=== PATIENT | female | born 1930 | race Caucasian/White ===

== ENCOUNTER 2017-07-23 12:08 | Inpatient (IN) ==
--- NOTE | 2017-07-23 12:21 | Emergency Department Report ---
Fall HPI - General Stated Complaint: syncope/fall <Gabrielle Morris Earl - 07/23/17 12:21> Time Seen by Provider: 07/23/17 12:21 <Gabrielle Morris - 07/23/17 12:21> Source: patient <Gabrielle Morris - 07/23/17 12:21> Mode of arrival: EMS <Gabrielle Morris - 07/23/17 12:52> Limitations: no limitations <Gabrielle Morris - 07/23/17 13:11> - History of Present Illness HPI Narrative: 87-year-old female brought to ER by EMS after patient had fall while at home today. Patient says she was going to get something to drink into the kitchen and she woke up on the floor in the dinning room. Does not remember what happened. Patient was unable to get up by herself. Thinks she was on the floor from 8:30 this morning until 11:30 until family arrived to help her up. Patient reports left lateral hip pain after fall. Given 4mg of zofran by EMS for reported nausea for nausea [employer]. Unsure if she struck her head. Admits nonproductive cough for past 3-4 days Denies fever, chills, SOA, CP, vomiting, abdominal pain, dysuria, neck pain, dizziness, ataxia. <Gabrielle Morris - 07/23/17 16:02> - Related Data Home Medications Medication Instructions Recorded Confirmed Latanoprost 1 drop BOTH EYES HS #0 01/16/16 07/23/17 Multivitamin [One Daily 1 each PO DAILY 02/05/17 07/23/17 Multivitamin] [place]-3 Fatty Acids/Fish Oil [Fish 2 cap PO DAILY 02/05/17 07/23/17 Oil 1,000 mg Softgel] Aspirin [Ecotrin] 81 mg PO DAILY 07/23/17 07/23/17 Timolol 0.25% Eye Drops [Timoptic 1 drops EACH EYE DAILY 07/23/17 07/23/17 0.25% Eye Drops] <Gabrielle Morris Earl - 07/23/17 12:21> Allergies Allergy/AdvReac Type Severity Reaction Status Date / Time furosemide Allergy Intermediate RASH Verified 07/23/17 12:40 Cephalosporins Allergy Mild RASH Verified 07/23/17 12:40 levofloxacin Allergy Mild RASH Verified 07/23/17 12:40 Sulfa (Sulfonamide Allergy Mild RASH Verified 07/23/17 12:40 Antibiotics) tetracycline Allergy Mild RASH Verified 07/23/17 12:40 <MorrisGabrielle A 07/23/17 12:21> Review of Systems All systems: reviewed and negative except as stated <MorrisGabrielle A 15:41> Gastrointestinal: Reports: as per HPI, nausea <ArturoGabrielle A 07/23/17 16: 02> Musculoskeletal: Reports: as per HPI, other (left hip pain) <MorrisGabrielle A 07/23/17 15:41> [facility] Patient Stated Medical History Glaucoma Yes 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 Bladder repair <Gabrielle Morris 07/23/17 15:03> Family History: Family History (Last Reviewed 03/06/17 @ 11:57 by Anant Durand MD) Father No problems noted. <ArturoGabrielle A 07/23/17 12:21> - Social History Smoking status: Never smoker <ArturoGabrielle A 07/23/17 12:21> Substance use type: does not use <ArturoGabrielle A 07/23/17 12:21> Alcohol intake frequency: does not drink <ArturoGabrielle A 07/23/17 12:21> Household members: none <ArturoGabrielle A 07/23/17 12:21> Current occupational status: retired <Gabrielle Morris 07/23/17 12:21> Physical Exam - Limitations Limitations: no limitations <ArturoGabrielle A 07/23/17 13:11> - General General appearance: alert <Gabrielle Morris 07/23/17 13:11> - Normal Exams: Head:: Normocephalic without trauma <Gabrielle Morris 07/23/17 13:11> Eyes:: Pupils are PERRLA w/ EOMI, No scleral icterus <Gabrielle Morris 07/23 13:11> ENMT:: No facial trauma, nasal exudates, pharyngeal erythema <Gabrielle Morris 07/23/17 13:11> Neck:: Full range of motion <Gabrielle Morris 07/23/17 13:11> Chest/Respirations:: Clear all baker, with good airflow, and symmetry bilaterally <Gabrielle Morris 07/23/17 13:11> Cardiovascular:: Regular rate and rhythm <Gabrielle Morris 07/23/17 13:11> Abdomen:: Bowel sounds positive, soft, non-tender, non-distended <Gabrielle Morris 07/23/17 13:11> Neurological:: Patient is alert, and oriented, cranial nerves, motor/sensory/ cerebellar, exams w/o gross deficits, to observation <Gabrielle Morris 07/23 13:11> Psychiatric:: Patient exhibits, appropriate attention, emotion and affect < Gabrielle Morris 07/23/17 13:11> - Neck Neck exam: Present: trachea midline <Gabrielle Morris 07/23/17 13:11> - Expanded Lower Extremity Exam left Hip/Pelvis exam: Present: full ROM, tenderness (TTP lateral proximal hip), pelvis stable. Absent: swelling, abrasion, ecchymosis, deformity, crepitus, dislocation, erythema, external rotation, internal rotation, shortening < Gabrielle Morris 07/23/17 16:02> Upper leg exam: Absent: swelling, ecchymosis, deformity, crepitus <Gabrielle Morris 07/23/17 13:11> Knee exam: Present: full ROM, knee extension intact. Absent: tenderness, swelling, ecchymosis, deformity, crepitus, anterior drawer sign, posterior draw sign, pain with valgus, pain with varus <Gabrielle Morris 07/23/17 13:11> Ankle exam: Present: full ROM. Absent: tenderness, swelling, ecchymosis, deformity <Gabrielle Morris 07/23/17 13:11> Foot/toe exam: Present: full ROM. Absent: tenderness, swelling, ecchymosis, deformity <Gabrielle Morris Earl - 07/23/17 13:11> Neurovascular/Tendon exam: Absent: pulse deficit, extremity cold to touch < MorrisGabrielle Elliott - 07/23/17 13:11> - Back Exam Back exam: Absent: tenderness, muscle spasm, vertebral tenderness <Gabrielle Morris - 07/23/17 16:02> - Skin Skin exam: Present: warm, dry <Gabrielle Morris - 07/23/17 16:02> Course - Consultations Consultation #1: I discussed patient's HPI, PMH, labs, CT head/pelvis, x-rays, EKG, VS, treatment in the ED with Dr. Stinson. Dr. Stinson willl admit patient observation status. <Gabrielle Morris - 07/23/17 16:02> Vital Signs Temperature 98.9 F 07/23/17 12:11 Pulse Rate 84 07/23/17 12:11 Respiratory Rate 18 07/23/17 12:11 Blood Pressure 145/83 H 07/23/17 12:11 Pulse Oximetry 94 07/23/17 12:11 Temperature 98.9 F 07/23/17 12:11 Pulse Rate 80 07/23/17 15:30 Respiratory Rate 17 07/23/17 15:30 Blood Pressure 115/54 07/23/17 15:30 Pulse Oximetry 97 07/23/17 15:30 <Gabrielle Morris - 07/23/17 12:21> Fall - MDM Narrative Medical decision making narrative: CBC unremarkable sodium 120 Normal troponin and proBNP Urine is positive for nitrates, 3-5 WBCs and 4+ bacteria (most likely contaminated specimen) patient just finished nitrofurantoin for diagnosed UTI Patient has a 20 mmHg drop in systolic pressure from lying to sitting. Patient was given 500 mg, saline. Questionable syncopal episode Patient unable to bear weight with support of staff/walker on left leg. Patient lives alone, unable to bear weight with assistance. Hospitalist notified and patient is admitted observation status. <Gabrielle Morris - 07/23/17 17:11> - Differential Diagnosis Likely: syncope (, fall, orthostatic hypotension, TIA, CVA, ), compression fracture (, other fracture) <Gabrielle Morris - 07/23/17 14:38> - Medical Records Attestation: I reviewed the patient's medical records. <Gabrielle Morris - 12/02 14:38> - Lab Data Attestation: I reviewed the patient's lab results. <Gabrielle Morris - 14:38> Result diagrams: 07/23/17 12:58 07/23/17 12:58 <Gabrielle Morris - 07/23/17 12:21> Lab Results 07/23/17 07/23/17 07/23/17 Range/Units 12:58 12:58 12:58 WBC 8.6 (4.5-11.0) T/MM3 RBC 4.33 (4.00-5.20) M/MM3 Hgb 12.1 (12-16) GM/DL Hct 36.1 (36-46) % MCV 83.4 (80-100) UM3 MCH 27.9 (26-34) UUG MCHC 33.5 (31-37) GM/DL RDW Std Deviation 39.6 (36.9-50.2) FL Plt Count 247 (130-400) T/MM3 MPV 8.9 L (9.4-12.4) UM3 Immature Gran % (Auto) 0.3 (0.0-0.5) % Neut % (Auto) 79.1 H (33-66) % Lymph % (Auto) 12.1 L (23-45) % [place] % (Auto) 8.3 (0-9.0) % Eos % (Auto) 0.1 (0-4) % Baso % (Auto) 0.1 (0-2) % Neut # (Auto) 6.8 (1.8-7.7) T/MM3 Lymph # (Auto) 1.0 (1-4.8) T/MM3 [place] # (Auto) 0.7 (0-0.8) T/MM3 Eos # (Auto) 0.0 (0-0.5) T/MM3 Baso # (Auto) 0.0 (0-0.2) T/MM3 Abs Immat Gran (auto) 0.03 (0.00-0.03) T/MM3 Turbidity < 20 (0-20) Sodium 128 L (134-144) MEQ/L Potassium 3.9 (3.6-5) MEQ/L Chloride 89 L (98-107) MEQ/L Carbon Dioxide 31 H (22-30) MEQ/L Anion Gap 8 (5-15) MEQ/L BUN 12.0 (7-17) MG/DL Creatinine 0.5 L (0.7-1.2) mg/dL GFR Calculation 117 BUN/Creatinine Ratio 24 (6-26) RATIO Glucose 114 H (65-110) MG/DL Calculated Osmolality 248 L (261-280) MOSM/KG Calcium 8.7 (8.4-10.2) MG/DL Total Bilirubin 0.40 (0.20-1.30) MG/DL Icterus Index < 2 (0-7) AST 47 H (14-36) U/L ALT 34 (1-35) U/L Alkaline Phosphatase 97 (38-126) U/L Troponin I < 0.012 (0-0.12) ng/ml NT-Pro-B Natriuret Pep 171 (0-175) pg/mL Total Protein 7.0 (6.3-8.2) g/dL Albumin 4.1 (3.5-5.0) g/dL Globulin 2.9 (2.4-3.6) G/DL Albumin/Globulin Ratio 1.4 (1.1-2.2) RATIO Specimen Hemolysis < 15 (0-25) Ur Collection Type Urine, void-cc/notcc Urine Color Yellow (YELLOW) Urine Clarity Sl cloudy Urine pH >=9.0 A (5.0-8.0) Ur Specific [place] 1.010 L (1.015-1.025) Urine Protein Negative (NEGATIVE) Urine Glucose (UA) Negative (NEGATIVE) Urine Ketones Negative (NEGATIVE) Urine Occult Blood Negative (NEGATIVE) Urine Nitrate Positive A (NEGATIVE) Urine Bilirubin Negative (NEGATIVE) Urine Urobilinogen 0.2 (NORMAL) EU/DL Ur Leukocyte Esterase Negative (NEGATIVE) Urine RBC 0-1 (0-3) /HPF Urine WBC 3-5 (0-5) /HPF Triple Phos Crystals Few Urine Bacteria 4+ H (NEGATIVE) Ur Culture Indicated? Cult reflexed &setup <Dennis Sanders - 07/23/17 12:41> Lab Results 07/23/17 07/23/17 07/23/17 Range/Units 12:58 12:58 12:58 WBC 8.6 (4.5-11.0) T/MM3 RBC 4.33 (4.00-5.20) M/MM3 Hgb 12.1 (12-16) GM/DL Hct 36.1 (36-46) % MCV 83.4 (80-100) UM3 MCH 27.9 (26-34) UUG MCHC 33.5 (31-37) GM/DL RDW Std Deviation 39.6 (36.9-50.2) FL Plt Count 247 (130-400) T/MM3 MPV 8.9 L (9.4-12.4) UM3 Immature Gran % (Auto) 0.3 (0.0-0.5) % Neut % (Auto) 79.1 H (33-66) % Lymph % (Auto) 12.1 L (23-45) % [place] % (Auto) 8.3 (0-9.0) % Eos % (Auto) 0.1 (0-4) % Baso % (Auto) 0.1 (0-2) % Neut # (Auto) 6.8 (1.8-7.7) T/MM3 Lymph # (Auto) 1.0 (1-4.8) T/MM3 [place] # (Auto) 0.7 (0-0.8) T/MM3 Eos # (Auto) 0.0 (0-0.5) T/MM3 Baso # (Auto) 0.0 (0-0.2) T/MM3 Abs Immat Gran (auto) 0.03 (0.00-0.03) T/MM3 Turbidity < 20 (0-20) Sodium 128 L (134-144) MEQ/L Potassium 3.9 (3.6-5) MEQ/L Chloride 89 L (98-107) MEQ/L Carbon Dioxide 31 H (22-30) MEQ/L Anion Gap 8 (5-15) MEQ/L BUN 12.0 (7-17) MG/DL Creatinine 0.5 L (0.7-1.2) mg/dL GFR Calculation 117 BUN/Creatinine Ratio 24 (6-26) RATIO Glucose 114 H (65-110) MG/DL Calculated Osmolality 248 L (261-280) MOSM/KG Calcium 8.7 (8.4-10.2) MG/DL Total Bilirubin 0.40 (0.20-1.30) MG/DL Icterus Index < 2 (0-7) AST 47 H (14-36) U/L ALT 34 (1-35) U/L Alkaline Phosphatase 97 (38-126) U/L Troponin I < 0.012 (0-0.12) ng/ml NT-Pro-B Natriuret Pep 171 (0-175) pg/mL Total Protein 7.0 (6.3-8.2) g/dL Albumin 4.1 (3.5-5.0) g/dL Globulin 2.9 (2.4-3.6) G/DL Albumin/Globulin Ratio 1.4 (1.1-2.2) RATIO Specimen Hemolysis < 15 (0-25) Ur Collection Type Urine, void-cc/notcc Urine Color Yellow (YELLOW) Urine Clarity Sl cloudy Urine pH >=9.0 A (5.0-8.0) Ur Specific [place] 1.010 L (1.015-1.025) Urine Protein Negative (NEGATIVE) Urine Glucose (UA) Negative (NEGATIVE) Urine Ketones Negative (NEGATIVE) Urine Occult Blood Negative (NEGATIVE) Urine Nitrate Positive A (NEGATIVE) Urine Bilirubin Negative (NEGATIVE) Urine Urobilinogen 0.2 (NORMAL) EU/DL Ur Leukocyte Esterase Negative (NEGATIVE) Urine RBC 0-1 (0-3) /HPF Urine WBC 3-5 (0-5) /HPF Triple Phos Crystals Few Urine Bacteria 4+ H (NEGATIVE) Ur Culture Indicated? Cult reflexed &setup <Gabrielle Morris 07/23/17 12:21> - Radiology Data Attestation: I reviewed the patient's radiology results. <Gabrielle Morris 07/23/17 14:11> CT head: no acute findings, chronic changes (V-RAD) Pelvis/left hip: left ramus fracture (Dr. Sanders) CT pelvis: left superior and inferior ramus fractures (V-RAD) CXR: no acute cardiopulmonary findings, similar to previous (Dr. Sanders) <Gabrielle Morris 07/23/17 16:02> - EKG Data EKG #1 EKG attestation: Yes: I reviewed and interpreted this EKG. <Gabrielle Morris 07/23/17 14:11> EKG results narrative: Sinus rhythm. 82 bpm. No STEMI. <Dennis Sanders - 07/23/17 12:41> Disposition Clinical Impression: Pubic ramus fracture Qualifiers: Encounter type: initial encounter Fracture type: closed Laterality: left Qualified Code(s): S32.592A - Other specified fracture of left pubis, initial encounter for closed fracture <Gabrielle Morris - 07/23/17 15:41> Disposition: 02 To [facility] <Gabrielle Morris - 07/23/17 17:11> Condition: Stable <Gabrielle Morris 07/23/17 17:11> Instructions: <Gabrielle Morris 07/23/17 12:21> Prescriptions: No Action Latanoprost 1 drop BOTH EYES HS #0 [place]-3 Fatty Acids/Fish Oil [Fish Oil 1,000 mg Softgel] 2 cap PO DAILY Aspirin [Ecotrin] 81 mg PO DAILY Multivitamin [One Daily Multivitamin] 1 each PO DAILY Timolol 0.25% Eye Drops [Timoptic 0.25% Eye Drops] 1 drops EACH EYE DAILY < Gabrielle Morris - 07/23/17 12:21> Referrals: Matt Ahuja MD [Primary Care Provider] - <Gabrielle Morris - 07/23/17 12:21> Forms: <Gabrielle Morris - 07/23/17 12:21> - Seen By: midlevel <Gabrielle Morris - 07/23/17 16:02>
[2017-07-23] MEDS ORDERED: FentaNYL 100 MCG/2 ML INJECTION IVP ONE (12:31)
[2017-07-23] MEDS: SALINE FLUSH 10ml SYRINGE IVF PRN ×2 (12:55→15:00)
[2017-07-23] MEDS ORDERED: FentaNYL 250 MCG/5 ML INJECTION IVP ONE ×2 (14:00)
[2017-07-23] MEDS ORDERED: HYDROCODONE/APAP 5mg/325mg TABLET PO ONE (14:16)
[2017-07-23 16:04] VITALS: BMI 27.6
--- NOTE | 2017-07-23 17:01 | History & Physical Report ---
History of Present Illness Date: 07/23/17 (PCP: Matt Ahuja) Chief complaint: Fall, pubic rami fx. HPI: Kathie is a pleasant 87 yo WF who fell this morning after a syncopal event. She is unclear on what happened, but woke up on the floor after an unknown down time. She was unable to stand due to left hip pain, and was brought into the ER for further evaluation and treatment. She has been found to have inferior and superior left pubic rami fracture and bladder hematoma. She has been admitted for further evaluation and treatment. Upon review of her record, pt. is noted to have several falls per ER records. She fell in February and suffered a finger laceration and fracture and was seen by Dr. Durand. She does admit that she suffers frequent falls. She reports that she stands up and "just falls backward". She does not have a documented neurological disorder, but her daughter does report pt. has a constant "head geneva", which is visible during our visit today. She has been recommended to have outpatient PT in the past due to gait instability. 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 She reports that she was recently treated for UTI with Macrobid due to labs obtained at a wellness exam. She denies any urinary sx. She reports she was afraid to take antibiotic therapy due to past history of C.Diff requiring ICU stay, several weeks in the hospital, and fecal transplant about 10 years ago. CXR has been reviewed today- concern for fibrotic changes per my reading- I d/w pt- she denies underlying lung disease. Daughter states pt has been ill with a persistent cough for the last week or so. patient denies fever. Cough is nonproductive. No SOA. Remote smoking hx, none currently. D/w pt and family at length. Questions answered. Review of Systems All systems PM: 10-point ROS was reviewed, no additional remarkable complaints except - Constitutional Constitutional: Absent: fever(s), headache(s) - EENMT Eyes: Absent: change in vision, loss of vision Ears: Present: other (Hearing loss left ear. ) Balance: Absent: vertigo Mouth/Throat: Present: hoarseness (new today) - Cardiovascular Cardiovascular: Present: syncope. Absent: chest pain, palpitations, dyspnea on exertion, edema, heart murmur Rhythm: Present: regular rhythm Vascular: Absent: pedal edema - Respiratory Respiratory: Present: cough, chest congestion. Absent: dyspnea, hemoptysis, dyspnea on exertion - Gastrointestinal Gastrointestinal: Absent: abdominal pain, change in bowel habits, constipation, hematemesis - Genitourinary Genitourinary: Absent: difficulty urinating, hematuria, pelvic pain - Musculoskeletal Musculoskeletal: Present: limited range of motion - Neurological Neurological: Present: frequent falls, lack of coordination, tremor(s), weakness Past Medical History Medical History: Medical History (Last Updated 07/23/17 @ 17:06 by Monica Prado APRN) Adenomatous colon polyp Age related osteoporosis Anemia Clostridium difficile enterocolitis Diverticulosis Dyslipidemia Glaucoma Meniere's disease Squamous cell carcinoma of lower leg No active medical problems Surgical History: Hysterectomy. Bladder repair. lumbar laminectomy. colonoscopy Family History: Family History (Last Reviewed 03/06/17 @ 11:57 by Anant Durand MD) Father CAD Family History Updates: Mother- CHF. Brother- Lung CA. Sister- MVA Family History: As Above - Social History Smoking status: Former smoker Substance use type: does not use Housing: house Household members: none Current occupational status: retired Current residence: Apartment/Private Home Medications Home Medications Medication Instructions Recorded Confirmed Type Latanoprost 1 drop BOTH EYES HS #0 01/16/16 07/23/17 History Multivitamin [One Daily 1 each PO DAILY 02/05/17 07/23/17 History Multivitamin] [place]-3 Fatty Acids/Fish Oil [Fish 2 cap PO DAILY 02/05/17 07/23/17 History Oil 1,000 mg Softgel] Aspirin [Ecotrin] 81 mg PO DAILY 07/23/17 07/23/17 History Timolol 0.25% Eye Drops [Timoptic 1 drops EACH EYE DAILY 07/23/17 07/23/17 History 0.25% Eye Drops] Allergies Allergy/AdvReac Type Severity Reaction Status Date / Time furosemide Allergy Intermediate RASH Verified 07/23/17 12:40 Cephalosporins Allergy Mild RASH Verified 07/23/17 12:40 levofloxacin Allergy Mild RASH Verified 07/23/17 12:40 Sulfa (Sulfonamide Allergy Mild RASH Verified 07/23/17 12:40 Antibiotics) tetracycline Allergy Mild RASH Verified 07/23/17 12:40 Exam Vital Signs: Temperature 98.9 F 07/23/17 12:11 Pulse Rate 80 07/23/17 15:30 Respiratory Rate 17 07/23/17 15:30 Blood Pressure 115/54 07/23/17 15:30 Pulse Oximetry 97 07/23/17 15:30 Telemetry Rhythm: Sinus Rhythm Telemetry Ectopy: Bundle Branch Block Height/Weight/BMI: Height 1.63 m Weight 73.2 kg Body Mass Index 27.6 - Constitutional Present: no acute distress, well nourished, well developed, average body habitus , cooperative - Routine HEENT Exam Head: Present: normocephalic, atraumatic (no laceration or bruises on head noted. ). Absent: laceration, hematoma, scalp tenderness Eye: Present: EOMI, PERRL. Absent: periorbital ecchymosis, periorbital swelling ENT: Present: mucous membranes dry - Routine Neck Exam Present: supple, full ROM. Absent: JVD, tenderness - Routine Respiratory Exam Present: decreased breath sounds, distant breath sounds. Absent: dyspnea, respiratory distress, crackles - Routine Cardiovascular Exam Present: RRR, S1, S2, no murmur - Routine Abdominal Exam Present: soft, normoactive bowel sounds, non distended, non tender Comments: No tenderness. No suprapubic tenderness on exam. No palpable hernia (pt states past hx of hernia-no sx) - Routine Extremities Exam Present: tenderness. Absent: edema, no edema, calf tenderness, extremity cold to touch - Routine Back/Spine/Pelvis Exam Pelvis: Present: sacral tenderness - Routine Skin Exam Present: intact, dry, warm - Routine Neurological Exam Present: alert, oriented X3, moving all extremities, tremors (resting head tremor noted. ) - Routine Psychiatric Exam Present: normal affect, normal thought process, cooperative Results - Labs CBC & Chem 7: 07/23/17 12:58 07/23/17 12:58 - Impressions CT head no acute. CT pelvis- superior and inferior pubic rami fx. Bladder hemorrhage Assessment and Plan (1) Pubic ramus fracture Current visit: Yes Status: Acute Assessment and Plan: 87 yo WF with Impression: 1. Left inferior and superior pubic rami fx. 2. Bladder hemorrhage, traumatic 3. Syncope with loss of consciousness, unknown down time 4. Orthostatic hypotension 5. Hyponatremia 6. Frequent falls. 7. Resting head tremor 8. Hx of complicated C.Diff 9. Glucoma 10. Recent viral URI with cough. 11. Recent UTI s/p macrobid. Plan: Due to co-morbid condition and severity of illness- change to inpatient admission *Ortho: Consult Dr. Durand in AM for recommendations. Control pain. I suspect she will need IRU or SNU stay for gait retraining. She is at high risk for injury due to frequent falls. D/W pt and family. *Syncope/Orthostasis/Hyponatremia Gentle IVF, but monitor. Monitor serial orthostatics. May need Midodrine if this persists due to hx of frequent falls. Monitor labs closely. *resting head tremor, gait instability consider future neuro eval *recent viral infection Add nebs. She is currently requiring O2. Monitor CXR. *Recent UTI/bladder hematoma- monitor for symptoms. Continue current. *resume home meds as appropriate. She has multiple medical issues, expect her length of stay to exceed two midnights. D/W pt and family code status- Full Code for now. She does have DPOA paperwork family will bring up. DVT Prophylaxis: SCD's Resuscitation Status: Full Code - Time spent with patient Time with patient PN: 35 minutes Coordination of Care: >50% of visit spent providing counseling/coordination of care - Physician Narrative Physician: Milton Stinson MD Narrative: Date: 07/23/17 Time: 1849 I have independently evaluated and examined this patient. I reviewed the chart, the patient's history, and the [employer]/PA's documented findings as above. We discussed and formulated the assessment and plan as above with additions as below: 87 yo with recent h/o falls. She says the one today was different, but she doesn 't remember what happened. She had gotten up from bed and was walking past the end of the bed. The next thing she knew she was on the ground. She could not get up d/t pain. She presented to the ER and was found to have inferior and superior left pubic rami fx. She was not able to bear weight and was admitted for pain control and therapy. In the ER she had a 20 mmHg drop in systolic pressure from lying to sitting. She was given 500 mg of NS. She c/o a dry cough of late. Some coughing spells lead to nausea. A granddaughter was present and reports patient has trouble eating and drinking her coffee. Patient says she does not cook for herself like she should when asked about her appetite. She avoided the question but at one point said sometimes she will just eat popcorn. She denies weight loss. Gen-NAD. HEENT- nc/at, perrl, eomi. Neck- supple Lungs-dim bs. CV- rrr. no m, r,g. Abd-s/nt/nd. Ext-no c,c,e. Neuro-a&ox3. No focal defecit Admitted to medical floor. Pain control. Consult PT/OT. Consult Dr. Durand, patient known to him. Start Duonebs and continue O2. Patient will need speech eval. Continue IVF. Check orthostatics qAM. Given falls, SNU or rehab are best options. Would need home safety eval if going home. Patient is a full code, but may d/w family. Hospital Course Summary Disclaimer: The visit summary below is not to be considered part of the above Progress Note. Hospital Course: 87 yo WF with Impression: 1. Left inferior and superior pubic rami fx. 2. Bladder hemorrhage, traumatic 3. Syncope with loss of consciousness, unknown down time 4. Orthostatic hypotension 5. Hyponatremia 6. Frequent falls. 7. Resting head tremor 8. Hx of complicated C.Diff 9. Glucoma 10. Recent viral URI with cough. 11. Recent UTI s/p macrobid. Plan: Due to co-morbid condition and severity of illness- change to inpatient admission *Ortho: Consult Dr. Durand in AM for recommendations. Control pain. I suspect she will need IRU or SNU stay for gait retraining. She is at high risk for injury due to frequent falls. D/W pt and family. *Syncope/Orthostasis/Hyponatremia Gentle IVF, but monitor. Monitor serial orthostatics. May need Midodrine if this persists due to hx of frequent falls. Monitor labs closely. *resting head tremor, gait instability consider future neuro eval *recent viral infection Add nebs. She is currently requiring O2. Monitor CXR. *Recent UTI/bladder hematoma- monitor for symptoms. Continue current. *resume home meds as appropriate. She has multiple medical issues, expect her length of stay to exceed two midnights. D/W pt and family code status- Full Code for now. She does have DPOA paperwork family will bring up.
[2017-07-23] MEDS ORDERED: MORPHINE SULFATE 2mg INJ IVP PRN (17:22)
[2017-07-23] MEDS ORDERED: ONDANSETRON 4 MG/2 ML INJECTION IVP PRN (17:22)
[2017-07-23] MEDS ORDERED: ACETAMINOPHEN 500 MG TABLET PO PRN (17:25)
[2017-07-23] MEDS ORDERED: BACLOFEN 10 MG TABLET PO PRN (17:26)
[2017-07-23] MEDS: ALBUTEROL/IPRATROPIUM 2.5mg-0.5mg/3ml NEB AEROSOL SCH (19:02)
[2017-07-23] MEDS: NS 1,000 ML IV SCH (19:58)
[2017-07-23] MEDS ORDERED: BACLOFEN 10 MG TABLET PO SCH (21:00)
[2017-07-24] MEDS: NS 1,000 ML IV SCH ×3 (02:38→16:31)
[2017-07-24] MEDS: ALBUTEROL/IPRATROPIUM 2.5mg-0.5mg/3ml NEB AEROSOL SCH ×4 (06:55→21:02)
--- NOTE | 2017-07-24 07:28 | CT Scan Report ---
Indication: syncopal episode unsure if she struck her head PROCEDURE: CT head/brain wo con: Encounter: Initial Comparison: None Technique: Axial CT images through the head were performed without contrast. Iterative Reconstruction dose reducing technique was utilized. FINDINGS: Mild generalized atrophy. 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 The ventricles are of normal size, shape, and contour for the patient's age. There are scattered areas of low attenuation in the white matter which most likely represent changes from chronic microvascular ischemia. The brainstem, cerebellum, and cerebral hemispheres otherwise have a normal morphology and CT attenuation. There is no evidence of midline displacement. No hemorrhage, signs of acute territorial stroke, mass effect, mass lesions, or edema is evident. The visualized portions of the skull base, midface, and calvarium demonstrate no abnormality. The paranasal sinuses are well aerated and free of significant disease. The tympanic and mastoid cavities appear normal. IMPRESSION: No acute intracranial abnormality or hemorrhage. There is a preliminary report by [employer]. .
--- NOTE | 2017-07-24 07:52 | XRay Report ---
Indication: syncope, hx. of cough PROCEDURE: XR chest 1V: Encounter: Initial Comparison: March 02, 2012 Findings: The lungs are stable in appearance without new focal airspace consolidation. Mild senescent changes in the lungs. There is no pleural effusion or pneumothorax. The heart size and mediastinal contours are unchanged. IMPRESSION: Stable appearance of the chest without acute cardiopulmonary disease. .
--- NOTE | 2017-07-24 08:21 | Orthopedic Consult Note ---
Orthopedic Consultation [facility] - Consultation Info Consult Date: 07/24/17 Attending Physician: Milton Stinson IV, MD - History of Present Illness Kathie had a syncopal episode at home yesterday morning 07/23/17. States she was on the floor for approximately 3 hours before she was able to notify EMS. She thinks she hit her hip on recliner when she fell, unsure if hit head or shoulder. Was painful to ambulate. She only uses a walking stick at home, states she will typically loose her balance and fall backwards. Per ER records she has had multiple falls. Xrays reveal non-displaced superior and inferior pubic rami fracture. Admitted for hyponatremia, syncope, UTI. Her pain has been well controlled. She has ambulated to bedside commode only. Denies any pain of hip or with internal/external rotation of hip. Review of Systems - Constitutional Constitutional: Absent: fever(s), dizziness - Cardiovascular Cardiovascular: Absent: chest pain, edema - Respiratory Respiratory: Absent: cough, dyspnea - Musculoskeletal Musculoskeletal: Present: as per [facility] Medical History (Last Updated 07/23/17 @ 17:06 by Monica Prado APRN) Adenomatous colon polyp (Acute Medical) Age related osteoporosis (Acute Medical) Anemia (Acute Medical) Clostridium difficile enterocolitis (Acute Medical) Diverticulosis (Acute Medical) Dyslipidemia (Acute Medical) Glaucoma (Acute Medical) Meniere's disease (Acute Medical) Squamous cell carcinoma of lower leg (Acute Medical) No active medical problems (Acute Medical) Surgical History: Hysterectomy. Bladder repair. lumbar laminectomy. colonoscopy Family History: Family History (Last Reviewed 03/06/17 @ 11:57 by Anant Durand MD) Father No problems noted. Family History Updates: Mother- CHF. Brother- Lung CA. Sister- MVA - Social History Smoking status: Former smoker Substance use type: does not use Alcohol intake frequency: does not drink Housing: house Household members: none Current occupational status: retired Current residence: Apartment/Private Home Medications Home Medications Medication Instructions Recorded Confirmed Type Latanoprost 1 drop BOTH EYES HS #0 01/16/16 07/23/17 History Multivitamin [One Daily 1 each PO DAILY 02/05/17 07/23/17 History Multivitamin] [place]-3 Fatty Acids/Fish Oil [Fish 2 cap PO DAILY 02/05/17 07/23/17 History Oil 1,000 mg Softgel] Aspirin [Ecotrin] 81 mg PO DAILY 07/23/17 07/23/17 History Timolol 0.25% Eye Drops [Timoptic 1 drops EACH EYE DAILY 07/23/17 07/23/17 History 0.25% Eye Drops] Allergies Allergy/AdvReac Type Severity Reaction Status Date / Time furosemide Allergy Intermediate RASH Verified 07/23/17 12:40 Cephalosporins Allergy Mild RASH Verified 07/23/17 12:40 levofloxacin Allergy Mild RASH Verified 07/23/17 12:40 Sulfa (Sulfonamide Allergy Mild RASH Verified 07/23/17 12:40 Antibiotics) tetracycline Allergy Mild RASH Verified 07/23/17 12:40 Exam - Constitutional Vital Signs: Temperature 98.9 F 07/23/17 23:43 Pulse Rate 100 07/24/17 00:00 Respiratory Rate 22 07/24/17 06:55 Blood Pressure 155/69 H 07/23/17 23:43 Pulse Oximetry 94 07/24/17 06:55 General: cooperative, no acute distress, well developed, well groomed Nutritional Appearance: well nourished Orientation: alert - Psych Mood: normal Affect: normal Attitude: cooperative - RLE General: normal to inspection Hip Palpation: Tender: lateral (mild tenderness) Skin: no lesions, no ecchymosis Hip Range of Motion: normal ROM Neurological: no deficits, normal to light touch Vascular: dorsalis pedis pulse within normal limits - LLE General: normal to inspection Skin: no lesions, no ecchymosis Hip Range of Motion: normal ROM Neurological: no deficits, normal to light touch Vascular: dorsalis pedis pulse within normal limits - Respiratory Respiratory Exam: non-labored - Cardiac Cardiovascular exam: pedal pulses intact - Labs Result Diagrams: 07/24/17 04:06 07/24/17 04:06 Abnormal lab results 07/24/17 07/24/17 Range/Units 04:06 04:06 RBC 3.73 L (4.00-5.20) M/MM3 Hgb 10.5 L D (12-16) GM/DL Hct 31.5 L D (36-46) % MPV 9.3 L (9.4-12.4) UM3 Lymph % (Auto) 19.5 L (23-45) % [place] % (Auto) 15.7 H (0-9.0) % [place] # (Auto) 1.0 H (0-0.8) T/MM3 Sodium 129 L (134-144) MEQ/L Chloride 95 L D (98-107) MEQ/L Creatinine 0.4 L (0.7-1.2) mg/dL BUN/Creatinine Ratio 30 H (6-26) RATIO Calculated Osmolality 249 L (261-280) MOSM/KG Calcium 7.7 L D (8.4-10.2) MG/DL Albumin 3.1 L (3.5-5.0) g/dL H & H 07/24/17 Range/Units 04:06 Hgb 10.5 L D (12-16) GM/DL Hct 31.5 L D (36-46) % Impression and Recommendation (1) Pubic ramus fracture Current visit: Yes Qualifiers: Encounter type: initial encounter Fracture type: closed Laterality: left Qualified Code(s): S32.592A - Other specified fracture of left pubis, initial encounter for closed fracture Status: Acute Will have patient ambulate with therapy this morning, then will obtain pelvis xrays this afternoon with inlet and outlet views. Hospitalist medically managing. PT/OT services to improve independent function. Discharge Planning per Case Management. Hospital Course Summary Disclaimer: The visit summary below is not to be considered part of the above Progress Note. Hospital Course: 87 yo WF with Impression: 1. Left inferior and superior pubic rami fx. 2. Bladder hemorrhage, traumatic 3. Syncope with loss of consciousness, unknown down time 4. Orthostatic hypotension 5. Hyponatremia 6. Frequent falls. 7. Resting head tremor 8. Hx of complicated C.Diff 9. Glucoma 10. Recent viral URI with cough. 11. Recent UTI s/p macrobid. Plan: Due to co-morbid condition and severity of illness- change to inpatient admission *Ortho: Consult Dr. Durand in AM for recommendations. Control pain. I suspect she will need IRU or SNU stay for gait retraining. She is at high risk for injury due to frequent falls. D/W pt and family. *Syncope/Orthostasis/Hyponatremia Gentle IVF, but monitor. Monitor serial orthostatics. May need Midodrine if this persists due to hx of frequent falls. Monitor labs closely. *resting head tremor, gait instability consider future neuro eval *recent viral infection Add nebs. She is currently requiring O2. Monitor CXR. *Recent UTI/bladder hematoma- monitor for symptoms. Continue current. *resume home meds as appropriate. She has multiple medical issues, expect her length of stay to exceed two midnights. D/W pt and family code status- Full Code for now. She does have DPOA paperwork family will bring up.
--- NOTE | 2017-07-24 09:29 | CT Scan Report ---
EXAM: CT pelvis wo con HISTORY: left pelvic ramus fracture TECHNIQUE: CT of the pelvis was performed. No contrast was administered. 3-D reconstructions were then performed at a separate workstation for better anatomic detail. Dose reduction techniques were utilized to allow for the lowest possible radiation dose. COMPARISON: Pelvic x-ray dated 07/23/2017. FINDINGS: There are acute minimally displaced comminuted oblique fractures of the left superior and inferior pubic rami. The bones are otherwise intact. No dislocation is present. Moderate hypertrophic degenerative changes are present involving the sacroiliac joints and bilateral hips. Fusion hardware is present overlying the lower lumbar spine with no evidence of hardware fracture or loosening. A hematoma is present within the lower anterior pelvis measuring 5.4 x 4.0 cm. A 3.0 x 2.5 cm cystic lesion is present within the right ovary Scattered diverticula are present throughout the visualized portions of the colon. IMPRESSION: 1. Acute minimally displaced comminuted fractures of left superior and inferior pubic rami. 2. Hematoma within the anterior lower pelvis. 3. Right adnexal cystic lesion. These findings are abnormal given patient age, recommend pelvic ultrasound on a nonemergent basis for further evaluation. 4. Degenerative changes of the bilateral sacroiliac joints and hips. .
--- NOTE | 2017-07-24 09:31 | XRay Report ---
EXAM: XR pelvis w/ 2 view LT hip COMPARISON: None available. HISTORY: pain left lateral hip after fall . FINDINGS: There are acute minimally displaced comminuted fractures of the left superior and inferior pubic rami. Moderate hypertrophic degenerative changes are present involving the bilateral hips and sacroiliac joints. Fusion hardware is present in the lower lumbar spine with no evidence of hardware fracture or loosening. IMPRESSION: Acute minimally displaced comminuted fractures of left superior and inferior pubic rami. .
[2017-07-24] MEDS: --POM--LATANOPROST 0.005% EYE DROPS 2.5ml EACH EYE SCH ×2 (09:37→20:33)
[2017-07-24] MEDS: EYE EACH EYE SCH (09:39)
[2017-07-24] MEDS: TIMOLOL 0.25% EACH EYE SCH (09:39)
[2017-07-24] MEDS ORDERED: FOSFOMYCIN 3 GRAM PACKET PO ONE (13:47)
--- NOTE | 2017-07-24 14:25 | XRay Report ---
EXAM: XR pelvis 1-2V COMPARISON: CT pelvis dated 07/23/2017 and pelvic radiograph dated 07/23/2017 HISTORY: left pelvic fracture . FINDINGS: Redemonstration of comminuted acute minimally displaced fractures of left superior and inferior pubic rami. The bones are otherwise intact. No dislocation is present. Posterior fusion hardware is present in the lower lumbar spine with no evidence of hardware fracture or loosening. Stable moderate hypertrophic degenerative changes of the bilateral hips and sacroiliac joints. IMPRESSION: 1. Acute minimally displaced fractures of the left superior-inferior pubic rami. 2. Post surgical changes of the lower lumbar spine with no evidence of a complicating process. .
--- NOTE | 2017-07-24 14:52 | Progress Note ---
- Date 07/24/17 Subjective: Kathie is seen today in follow up while resting in the chair. She reports having some mild left pelvic pain with ambulation. Otherwise, she denies having shortness of breath or chest pain. Appetite is fair. She had some burning with urination this morning. No bowel movements since admission. Objective Vital signs: Temperature 98.0 F 07/24/17 11:41 Pulse Rate 97 07/24/17 09:07 Respiratory Rate 16 07/24/17 11:35 Blood Pressure 119/66 07/24/17 08:11 Pulse Oximetry 92 07/24/17 11:35 Height/Weight/BMI: Weight 73.8 kg - Constitutional Present: no acute distress, well nourished, well developed - Routine HEENT Exam Eye: Present: EOMI ENT: Present: mucous membranes moist, dentition normal - Routine Respiratory Exam Present: CTA bilaterally. Absent: wheezes - Routine Cardiovascular Exam Present: RRR, S1, S2. Absent: murmur - Routine Abdominal Exam Present: soft, normoactive bowel sounds, non distended. Absent: tenderness - Routine Extremities Exam Present: normal capillary refill - Routine Back/Spine/Pelvis Exam Back image: 1 - pain - Routine Skin Exam Present: intact, dry, warm - Routine Neurological Exam Present: alert, oriented X3, CN II-XII intact - Routine Lymphatic Exam Lymphatic: Absent: adenopathy - Routine Psychiatric Exam Present: normal affect, cooperative Results - Labs CBC & Chem 7: 07/24/17 04:06 07/24/17 04:06 Assessment and Plan (1) Pubic ramus fracture Current visit: Yes Status: Acute Assessment and Plan: Impression: 1. Left inferior and superior pubic rami fx. 2. Bladder hemorrhage, traumatic 3. Syncope with loss of consciousness, unknown down time 4. Orthostatic hypotension 5. Hyponatremia 6. Frequent falls. 7. Resting head tremor 8. Hx of complicated C.Diff 9. Glucoma 10. Recent viral URI with cough. 11. Recent UTI s/p macrobid. Plan UA revels Gram negative rods- Will treat with one time dose of Monurol. Discussed increased bowel motivation as constipation is common with pelvic and thorax fractures. Add Miralax daily and MOM as needed. Monitor blood pressures. Will treat only standing blood pressures. Given history of orthostasis. This may play a role in her syncopal episodes. Echocardiogram was obtained and is pending. Persistent hyponatremia-continue to monitor. Discussed ongoing treatment plan. Patient would prefer IRU for rehabilitation. Screening placed. DVT Prophylaxis: SCD's Resuscitation Status: Full Code - Time spent with patient Time with patient PN: 25 minutes - Physician Narrative Physician: James Melendez MD Narrative: Date: 07/24/17 Time: 1448 Have independently interviewed and examined pt. Chart reviewed. Case discussed with CM and my STAFF TECHNOLOGIST. Care plan developed with my supervision; agree with above. Doing fair. Notes increased pain with positional changes and movements. Hard to be up and active due to pain. Not having urinary pain or burning. No nausea, but minimal appetite. Breathing well except for occasional cough. Lungs: decreased, no distress CV: regular AB: soft nt MSE: awake alert appropriate Plan: Fosfomycin x1 for urinary infection. Will start Miacalcin nasal spray to try to help decrease pelvic fracture pain. Therapy to help improve functional status. Monitor lab. Hospital Course Summary Disclaimer: The visit summary below is not to be considered part of the above Progress Note. Hospital Course: 87 yo WF with Impression: 1. Left inferior and superior pubic rami fx. 2. Bladder hemorrhage, traumatic 3. Syncope with loss of consciousness, unknown down time 4. Orthostatic hypotension 5. Hyponatremia 6. Frequent falls. 7. Resting head tremor 8. Hx of complicated C.Diff 9. Glucoma 10. Recent viral URI with cough. 11. Recent UTI s/p macrobid. 07/23 Due to co-morbid condition and severity of illness- change to inpatient admission *Ortho: Consult Dr. Durand in AM for recommendations. Control pain. I suspect she will need IRU or SNU stay for gait retraining. She is at high risk for injury due to frequent falls. D/W pt and family. *Syncope/Orthostasis/Hyponatremia Gentle IVF, but monitor. Monitor serial orthostatics. May need Midodrine if this persists due to hx of frequent falls. Monitor labs closely. *resting head tremor, gait instability consider future neuro eval *recent viral infection Add nebs. She is currently requiring O2. Monitor CXR. *Recent UTI/bladder hematoma- monitor for symptoms. Continue current. *resume home meds as appropriate. She has multiple medical issues, expect her length of stay to exceed two midnights. D/W pt and family code status- Full Code for now. She does have DPOA paperwork family will bring up. 07/24 UA revels Gram negative rods- Will treat with one time dose of Monurol. Discussed increased bowel motivation as constipation is common with pelvic and thorax fractures. Add Miralax daily and MOM as needed. Add Miacalcin nasal spray to help with pelvic fracture pain. Monitor blood pressures. Will treat only standing blood pressures. Given history of orthostasis. This may play a role in her syncopal episodes. Echocardiogram was obtained and is pending. Persistent hyponatremia-continue to monitor. Discussed ongoing treatment plan. Patient would prefer IRU for rehabilitation. Screening placed.
[2017-07-24] MEDS: POLYETHYL GLYCOL 3350 17gm PACKET PO SCH (15:35)
[2017-07-24] MEDS: CALCITONIN NASAL SPRAY 3.7ml NS SCH (17:04)
--- NOTE | 2017-07-24 19:28 | Echocardiogram ---
DATE OF STUDY 07/24/2017 INDICATIONS Syncope. TECHNICAL QUALITY Technically good 2D, M-mode, Doppler echocardiographic images were submitted for interpretation. FINDINGS 1. CARDIAC CHAMBERS: All cardiac chamber measurements are normal. Aortic root diameter is normal. Left atrium measures 2.8 cm. 2. LEFT VENTRICLE: Wall thickness is normal. Septum measured 9.9 mm. Posterior wall measured 8.3 mm. The patient is quite tachycardic throughout the study. Hyperdynamic left ventricle with complete obliteration of the LV cavity. Increased flow velocity at the LVOT level measuring 1.96 m/sec, aortic valve level 2.2 m/sec. I don't appreciate any significant septal hypertrophy or true REHANA. Findings are suspected to be related to hypovolemia. Clinical correlation is recommended. Grade 1/4 diastolic dysfunction is present. This may be normal in the elderly. 3. VALVES: Aortic valve is trileaflet and exhibits mild sclerotic changes. Valve opening is normal. Mitral valve exhibits moderate annular calcification. Valve excursion is normal. Tricuspid valve structure and motion appear normal. Normal valve excursion. 4. DOPPLER: Increased flow velocity at the LVOT level at 1.96 m/sec. No change following Valsalva maneuver. There is a little delayed upstroke at the aortic valve 2.2 m/sec. Trace mitral regurgitation. Trace tricuspid regurgitation. IVC is small and exhibits complete collapse suggestive of hypovolemia. Similarly, small LV cavity size of 3.2 cm correlates with the same. 5. No evidence of pericardial effusion, intracardiac masses, thrombi, vegetations or shunts. 6. Systolic PA pressure estimated at 40 mmHg which is mildly increased. IMPRESSION 1. Hyperdynamic left ventricle. EF estimated at 75%. 2. Findings consistent with hypovolemia, as above, including the increased peak flow velocity at the LVOT level without septal hypertrophy, or REHANA, relative tachycardia, hyperdynamic left ventricle,small LV cavity and IVC size. See comment above. That could explain syncope.Clinical correlation is recommended. d/w Dr Roach. 3. Mitral annular calcification with increased transvalvular mean pressure gradient of 6 mmHg in the setting of tachycardia. Doubt true mitral valve stenosis based on the visual appearance and opening of the anterior leaflet. 4. Mildly elevated pulmonary artery pressure. MTDD
[2017-07-24] MEDS: HYDROCODONE/APAP 5mg/325mg TABLET PO PRN (20:16)
[2017-07-24] MEDS: CALCIUM 600 + VIT D 400 TABLET PO SCH (20:34)
[2017-07-24 23:24] VITALS: TEMP 98.9; O2SAT 91
[2017-07-25] MEDS: NS 1,000 ML IV SCH ×3 (01:28→13:11)
[2017-07-25] MEDS: HYDROCODONE/APAP 5mg/325mg TABLET PO PRN (06:00)
[2017-07-25] MEDS: ALBUTEROL/IPRATROPIUM 2.5mg-0.5mg/3ml NEB AEROSOL SCH ×2 (06:56→11:01)
[2017-07-25 08:58] VITALS: BP 117/59
[2017-07-25] MEDS: CALCIUM 600 + VIT D 400 TABLET PO SCH (09:29)
[2017-07-25] MEDS: TIMOLOL 0.25% EACH EYE SCH (09:29)
[2017-07-25] MEDS: CALCITONIN NASAL SPRAY 3.7ml NS SCH (09:29)
[2017-07-25] MEDS: EYE EACH EYE SCH (09:29)
[2017-07-25] MEDS: POLYETHYL GLYCOL 3350 17gm PACKET PO SCH (09:29)
[2017-07-25 10:40] VITALS: PULSE 93
[2017-07-25 11:04] VITALS: RESP 14
--- NOTE | 2017-07-25 12:01 | Progress Note ---
- Date 07/25/17 Subjective: F/U: Pelvic fracture, UTI Doing much better today. Able to walk in halls with therapy assistance. Pain decreasing. Appetite improving-able to tolerate breakfast. No nausea. Bowels slow. Breathing well. No chest pain. Orthostasis improved. Echo from admission did show patient to be 'dry' according to Dr Figueredo. Objective Vital signs: Temperature 98.9 F 07/24/17 23:24 Pulse Rate 93 07/25/17 09:00 Respiratory Rate 14 07/25/17 11:01 Blood Pressure 117/59 07/25/17 08:56 Pulse Oximetry 91 07/25/17 07:00 Height/Weight/BMI: Weight 74.3 kg - Constitutional Present: well nourished, well developed, average body habitus, cooperative - Routine HEENT Exam Head: Present: normocephalic, atraumatic Eye: Present: EOMI, PERRL ENT: Present: mucous membranes moist - Routine Respiratory Exam Present: decreased breath sounds. Absent: respiratory distress - Routine Cardiovascular Exam Present: RRR, no murmur - Routine Abdominal Exam Present: soft, normoactive bowel sounds, non distended, non tender - Routine Extremities Exam Present: pulses intact. Absent: cyanosis, clubbing - Routine Musculoskeletal Exam Musculoskeletal: Present: no clubbing or cyanosis - Routine Skin Exam Present: intact, dry, warm - Routine Neurological Exam Present: alert, oriented X3, moving all extremities, vision grossly intact, hearing grossly intact, normal speech. Absent: motor deficit, altered mental status - Routine Psychiatric Exam Present: normal affect, normal thought process, cooperative Results - Labs CBC & Chem 7: 07/25/17 04:00 07/25/17 04:00 Assessment and Plan (1) Pubic ramus fracture Current visit: Yes Status: Acute Assessment and Plan: Impression: Left inferior and superior pubic rami fx. Bladder hemorrhage, traumatic Syncope with loss of consciousness, unknown down time Orthostatic hypotension Hyponatremia (POA) UTI with Providencia rettgeri Frequent falls. Resting head tremor Hx of complicated C.Diff Glucoma Recent viral URI with cough. Recent UTI s/p macrobid. Plan Clinically improving. Urine culture revels Providencia rettgeri - given one time dose of Monurol yesterday. Orthostasis improved. BP and HR stable. Tolerating therapy. Moving more and better. Pain decreasing. Will discharge to IRU for continuation of restorative care. May discontinue IVF. Continue with pain control. Will need follow up with Dr Ahuja 1 week after discharge from IRU. See orders for details. Case discussed with CM. Time spent with patient care and discharge greater than 30 minutes. DVT Prophylaxis: SCD's Resuscitation Status: Full Code - Physician Narrative Physician: James Melendez MD Narrative: Date: 07/25/17 Time: 1158 Hospital Course Summary Disclaimer: The visit summary below is not to be considered part of the above Progress Note. Hospital Course: 07/23 Due to co-morbid condition and severity of illness - change to inpatient admission *Ortho: Consult Dr. Durand in AM for recommendations. Control pain. I suspect she will need IRU or SNU stay for gait retraining. She is at high risk for injury due to frequent falls. D/W pt and family. Syncope/Orthostasis/Hyponatremia Gentle IVF, but monitor. Monitor serial orthostatics. May need Midodrine if this persists due to hx of frequent falls. Monitor labs closely. Resting head tremor, gait instability consider future neuro eval Recent ecent viral infection Add nebs. She is currently requiring O2. Monitor CXR. Recent UTI/bladder hematoma- monitor for symptoms. Continue current. Resume home meds as appropriate. She has multiple medical issues, expect her length of stay to exceed two midnights. D/W pt and family code status- Full Code for now. She does have DPOA paperwork family will bring up. 07/24 UA revels Gram negative rods- Will treat with one time dose of Monurol. Discussed increased bowel motivation as constipation is common with pelvic and thorax fractures. Add Miralax daily and MOM as needed. Add Miacalcin nasal spray to help with pelvic fracture pain. Monitor blood pressures. Will treat only standing blood pressures. Given history of orthostasis. This may play a role in her syncopal episodes. Echocardiogram was obtained and is pending. Persistent hyponatremia-continue to monitor. Discussed ongoing treatment plan. Patient would prefer IRU for rehabilitation. Screening placed. 07/25 Clinically improving. Urine culture revels Providencia rettgeri - given one time dose of Monurol yesterday. Orthostasis improved. BP and HR stable. Tolerating therapy. Moving more and better. Pain decreasing. Will discharge to IRU for continuation of restorative care. May discontinue IVF. Continue with pain control. Will need follow up with Dr Ahuja 1 week after discharge from IRU. See orders for details.
--- NOTE | 2017-07-25 12:14 | Orthopedic Progress Note ---
Date: Date: 07/25/17 Time: 1209 Subjective/Severity of Illness: Kathie is sitting up in her chair this morning, has been up ambulating in the [place] this morning. Her pain has been well controlled, and she states it feels good to get up and move. Her inlet and outlet pelvic xrays revealed stable inferior and posterior pelvic rami fracture yesterday after ambulating with PT. Denies any chest pain, soa, nausea, abdominal pain. Exam - Constitutional Vital Signs: Temperature 98.9 F 07/24/17 23:24 Pulse Rate 93 07/25/17 09:00 Respiratory Rate 14 07/25/17 11:01 Blood Pressure 117/59 07/25/17 08:56 Pulse Oximetry 91 07/25/17 07:00 General: cooperative, no acute distress, well developed, well groomed Nutritional Appearance: well nourished Orientation: alert - LLE General: normal to inspection, no obvious deformity Neurological: no deficits, normal to light touch - Respiratory Respiratory Exam: non-labored - Cardiac Cardiovascular exam: pedal pulses intact - Labs Result Diagrams: 07/25/17 04:00 07/25/17 04:00 Abnormal lab results 07/25/17 07/25/17 Range/Units 04:00 04:00 RBC 3.74 L (4.00-5.20) M/MM3 Hgb 10.4 L (12-16) GM/DL Hct 31.7 L (36-46) % Hanson % (Auto) 13.6 H (0-9.0) % Sodium 132 L (134-144) MEQ/L Creatinine 0.4 L (0.7-1.2) mg/dL Calculated Osmolality 253 L (261-280) MOSM/KG Calcium 7.8 L (8.4-10.2) MG/DL AST 42 H (14-36) U/L Total Protein 5.7 L (6.3-8.2) g/dL Albumin 2.9 L (3.5-5.0) g/dL Albumin/Globulin Ratio 1.0 L (1.1-2.2) RATIO H & H 07/24/17 07/25/17 Range/Units 04:06 04:00 Hgb 10.5 L D 10.4 L (12-16) GM/DL Hct 31.5 L D 31.7 L (36-46) % Orthopedic Assessment and Plan (1) Pubic ramus fracture Status: Acute Qualifiers: Encounter type: initial encounter Fracture type: closed Laterality: left Qualified Code(s): S32.592A - Other specified fracture of left pubis, initial encounter for closed fracture Assessment and Plan: Continue WBAT with a walker. Recommend follow up in 3 weeks in ortho clinic for repeat xrays, sooner if increased pain. Anticipated discharge to IRU today. Medical management and anticoagulation by hospitalist Hospital Course Summary Disclaimer: The visit summary below is not to be considered part of the above Progress Note. Hospital Course: 07/23 Due to co-morbid condition and severity of illness - change to inpatient admission *Ortho: Consult Dr. Durand in AM for recommendations. Control pain. I suspect she will need IRU or SNU stay for gait retraining. She is at high risk for injury due to frequent falls. D/W pt and family. Syncope/Orthostasis/Hyponatremia Gentle IVF, but monitor. Monitor serial orthostatics. May need Midodrine if this persists due to hx of frequent falls. Monitor labs closely. Resting head tremor, gait instability consider future neuro eval Recent ecent viral infection Add nebs. She is currently requiring O2. Monitor CXR. Recent UTI/bladder hematoma- monitor for symptoms. Continue current. Resume home meds as appropriate. She has multiple medical issues, expect her length of stay to exceed two midnights. D/W pt and family code status- Full Code for now. She does have DPOA paperwork family will bring up. 07/24 UA revels Gram negative rods- Will treat with one time dose of Monurol. Discussed increased bowel motivation as constipation is common with pelvic and thorax fractures. Add Miralax daily and MOM as needed. Add Miacalcin nasal spray to help with pelvic fracture pain. Monitor blood pressures. Will treat only standing blood pressures. Given history of orthostasis. This may play a role in her syncopal episodes. Echocardiogram was obtained and is pending. Persistent hyponatremia-continue to monitor. Discussed ongoing treatment plan. Patient would prefer IRU for rehabilitation. Screening placed. 07/25 Clinically improving. Urine culture revels Providencia rettgeri - given one time dose of Monurol yesterday. Orthostasis improved. BP and HR stable. Tolerating therapy. Moving more and better. Pain decreasing. Will discharge to IRU for continuation of restorative care. May discontinue IVF. Continue with pain control. Will need follow up with Dr Ahuja 1 week after discharge from IRU. See orders for details.
--- NOTE | 2017-07-25 12:54 | Discharge Summary ---
Discharge Information Date of admission: 07/23/17 17:18 Anticipated date of discharge: 07/25/17 Attending Physician: James Melendez MD Primary care physician: Matt Ahuja MD Consults: Dr. Durand-orthopedist - Discharge Diagnosis (1) Pubic ramus fracture Status: Acute Left inferior and superior pubic rami fx. Bladder hemorrhage, traumatic Syncope with loss of consciousness, unknown down time Orthostatic hypotension Hyponatremia (POA) UTI with Providencia rettgeri Frequent falls. Resting head tremor Hx of complicated C.Diff Glucoma Recent viral URI with cough. Recent UTI s/p macrobid. - Procedures Procedures: None - Laboratory Labs: 07/25/17 04:00 07/25/17 04:00 - Microbiology n/a - Radiology Radiology: 07/23/[address] head-IMPRESSION: No acute intracranial abnormality or hemorrhage. 2. CT pelvis- IMPRESSION: Acute minimally displaced comminuted fractures of left superior and inferior pubic rami. Hematoma within the anterior lower pelvis. Right adnexal cystic lesion. These findings are abnormal given patient age, recommend pelvic ultrasound on a nonemergent basis for further evaluation. Degenerative changes of the bilateral sacroiliac joints and hips. 3. Chest x-ray-no acute cardiopulmonary abnormalities 4. Pelvis Xray- IMPRESSION: Acute minimally displaced comminuted fractures of left superior and inferior pubic rami. 07/24/17 Echocardiogram- IMPRESSION 1. Hyperdynamic left ventricle. EF estimated at 75%. 2. Findings consistent with hypovolemia, as above, including the increased peak flow velocity at the LVOT level without septal hypertrophy, or REHANA, relative tachycardia, hyperdynamic left ventricle, LV cavity and IVC size. See comment above. 3. Mitral annular calcification with increased transvalvular mean pressure gradient of 6 mmHg in the setting of tachycardia. Doubt true mitral valve stenosis based on the visual appearance and opening of the anterior leaflet. 4. Mildly elevated pulmonary artery pressure. Pelvis Xray- IMPRESSION: 1. Acute minimally displaced fractures of the left superior-inferior pubic rami. 2. Post surgical changes of the lower lumbar spine with no evidence of a complicating process. - Pathology None History of Present Illness HPI: Kathie is a pleasant 87 yo WF who fell this morning after a syncopal event. She is unclear on what happened, but woke up on the floor after an unknown down time. She was unable to stand due to left hip pain, and was brought into the ER for further evaluation and treatment. She has been found to have inferior and superior left pubic rami fracture and bladder hematoma. She has been admitted for further evaluation and treatment. Upon review of her record, pt. is noted to have several falls per ER records. She fell in February and suffered a finger laceration and fracture and was seen by Dr. Durand. She does admit that she suffers frequent falls. She reports that she stands up and "just falls backward". She does not have a documented neurological disorder, but her daughter does report pt. has a constant "head geneva", which is visible during our visit today. She has been recommended to have outpatient PT in the past due to gait instability. 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 She reports that she was recently treated for UTI with Macrobid due to labs obtained at a wellness exam. She denies any urinary sx. She reports she was afraid to take antibiotic therapy due to past history of C.Diff requiring ICU stay, several weeks in the hospital, and fecal transplant about 10 years ago. CXR has been reviewed today- concern for fibrotic changes per my reading- I d/w pt- she denies underlying lung disease. Daughter states pt has been ill with a persistent cough for the last week or so. patient denies fever. Cough is nonproductive. No SOA. Remote smoking hx, none currently. D/w pt and family at length. Questions answered. For complete details of the H&P refer to that document. Objective Vital signs: Temperature 98.9 F 07/24/17 23:24 Pulse Rate 93 07/25/17 09:00 Respiratory Rate 14 07/25/17 11:01 Blood Pressure 117/59 07/25/17 08:56 Pulse Oximetry 91 07/25/17 07:00 Height/Weight/BMI: Weight 74.3 kg - Constitutional Present: no acute distress, well nourished, well developed - Routine HEENT Exam ENT: Present: mucous membranes moist, dentition normal - Routine Respiratory Exam Present: CTA bilaterally. Absent: wheezes - Routine Cardiovascular Exam Present: RRR. Absent: murmur - Routine Abdominal Exam Present: soft, normoactive bowel sounds, non distended. Absent: tenderness - Routine Extremities Exam Present: pulses intact - Routine Skin Exam Present: intact, dry, warm - Routine Neurological Exam Present: alert, oriented X3, CN II-XII intact, altered mental status, moving all extremities, vision grossly intact, hearing grossly intact. Absent: motor deficit - Routine Lymphatic Exam Lymphatic: Absent: adenopathy - Routine Psychiatric Exam Present: normal affect, normal thought process, cooperative Hospital Course This is a general summary of the patient's hospital course. For more details refer to the complete medical record. Hospital course: 07/23 Due to co-morbid condition and severity of illness - change to inpatient admission *Ortho: Consult Dr. Durand in AM for recommendations. Control pain. I suspect she will need IRU or SNU stay for gait retraining. She is at high risk for injury due to frequent falls. D/W pt and family. Syncope/Orthostasis/Hyponatremia Gentle IVF, but monitor. Monitor serial orthostatics. May need Midodrine if this persists due to hx of frequent falls. Monitor labs closely. Resting head tremor, gait instability consider future neuro eval Recent ecent viral infection Add nebs. She is currently requiring O2. Monitor CXR. Recent UTI/bladder hematoma- monitor for symptoms. Continue current. Resume home meds as appropriate. She has multiple medical issues, expect her length of stay to exceed two midnights. D/W pt and family code status- Full Code for now. She does have DPOA paperwork family will bring up. 07/24 UA revels Gram negative rods- Will treat with one time dose of Monurol. Discussed increased bowel motivation as constipation is common with pelvic and thorax fractures. Add Miralax daily and MOM as needed. Add Miacalcin nasal spray to help with pelvic fracture pain. Monitor blood pressures. Will treat only standing blood pressures. Given history of orthostasis. This may play a role in her syncopal episodes. Echocardiogram was obtained and is pending. Persistent hyponatremia-continue to monitor. Discussed ongoing treatment plan. Patient would prefer IRU for rehabilitation. Screening placed. 07/25- Discharge Clinically improving. Urine culture revels Providencia rettgeri - given one time dose of Monurol yesterday. Orthostasis improved. BP and HR stable. Tolerating therapy. Moving more and better. Pain decreasing. Will discharge to IRU for continuation of restorative care. May discontinue IVF. Continue with pain control. Will need follow up with Dr Ahuja 1 week after discharge from IRU. Time spent with patient: discharge greater than 30 minutes Resuscitation Status: Full Code Discharge Plan - Discharge Disposition Discharge Date: 07/25/17 Disposition: 62 To [facility] *Condition: Stable Reason For Visit (Visit label in EMR): Syncope, Pubic Rami fx. - Discharge Medications *Discharge Medications: Continue Latanoprost 1 drop BOTH EYES HS #0 [place]-3 Fatty Acids/Fish Oil [Fish Oil 1,000 mg Softgel] 2 cap PO DAILY Aspirin [Ecotrin] 81 mg PO DAILY Multivitamin [One Daily Multivitamin] 1 each PO DAILY Timolol 0.25% Eye Drops [Timoptic 0.25% Eye Drops] 1 drops EACH EYE DAILY - Discharge Packet/Instructions *Diet: Regular diet *Activity: As tolerated *Pain Management/Treatment: Tylenol and [place] *Wound Care: N/A *Expected Signs/Symptoms: N/A *Notify Physician if: N/A *During Business Hours Contact: N/A *After Business Hours Contact: N/A *Pending Lab/Results: No Pending Lab - IRU/GEN Discharge/Transfer - Referrals/Follow Up *Referrals/Follow Up: Matt Ahuja MD [Primary Care Provider] - (Will need follow up for 1 week post- discharge from IRU) - Patient Handouts Patient Handouts: Syncope (GEN) - Dismissal Complete Discharge Instructions are:: Complete Physician Narrative - Narrative Physician: James Melendez MD Attestation Narrative: Date: 07/25/17 Time: 1300 I have independently interviewed and examined patient prior to discharge. See my progress note from today for details. Medically stable to discharge to IRU.
== END 2017-07-25 14:46 | DRG 964 ==
LOC: MED 12:08 → ED 12:08 → MED 15:40 → SUATTDRO 17:18
PROVIDERS: ADMIT Hospitalist; ATTEND Hospitalist

== ENCOUNTER 2017-07-25 14:47 | Inpatient (IN) ==
--- NOTE | 2017-07-25 15:14 | IRU History & Physical Report ---
[facility] IRU Date: Date: 07/25/17 Time: 1508 Chief complaint: My pelvis hurts HPI: Ms. Espana is a very pleasant 87-year-old female referred by Dr. James Melendez. Her primary care doctor is Dr. Matt Ahuja. The patient states that she had had a 2 day history of severe coughing spells. She states that she was getting up on the morning of 07/23/2017 to go to the kitchen. The next thing she knew, she awakened on the floor. She could not get up because of severe pain in the left pelvic area. She was brought to the emergency department by EMS. She apparently was on the floor for about 3 hours on the morning of admission until her family arrived to help her. She does live alone. She complained of left lateral hip pain after the fall. She states that she did not hit her head to her knowledge. She has not passed out previously but has fallen on occasion. CT of the head was negative in the emergency department. Plain film demonstrated left pubic ramus fracture. CT of pelvis demonstrated left superior and inferior rami fractures along with hematoma. In addition there was a right adnexal cystic lesion with radiology recommending further evaluation on a nonemergent basis. Chest radiograph was unremarkable. She was admitted to the hospital because of the severe pain and recent pelvic fracture as well as the syncope. During her hospitalization she was diagnosed with a urinary tract infection with Providencia rettgeri. She apparently has a recent history of C. difficile colitis. She has been given a single dose of fosfomycin orally on 07/24/2017 for her UTI. With regard to her cough, she states it has been present for 2-5 days. She has only scant sputum. Her chest radiograph has been unremarkable. She does report a history of Mnire's for many years. Has only occasional headaches. She does not currently complain of a headache. As mentioned, the patient lives alone in her own home. She has 2 steps to get into her house. She does not routinely use any assistive devices. However her laundry is in the basement requiring her to climb stairs into the basement. Her desire is to go back home. Patient was noted to have hyponatremia with initial sodium 128. It is now up to 132. In addition the patient has experienced acute blood loss anemia with initial hemoglobin 12.1 and now it is down to 10.4. Whether this is related to the hematoma noted on CT scan is not clear. It could also be related to rehydration. She was seen by cardiology with regard to orthostasis and syncope. Echocardiogram demonstrated ejection fraction of 75%. Previously, the patient was independent for all activities except for bed/chair/ wheelchair activities as well as toilet transfers which were modified independent level. She was able to ambulate independently. Current level of function is as follows: She is independent for eating, require supervision for grooming, minimum assistance for upper body dressing but total assistance for lower body dressing. She requires moderate assistance for bed/ chair/wheelchair transfers, total assistance for walking with a rolling walker 40 feet. The patient is limited by significant pain and markedly reduced balance. She has decreased strength, poor safety awareness and easy fatigability. The following medical conditions are noted and require active monitoring and/or management: 1. Left superior and inferior pubic rami fractures 2. Possible syncope 3. Acute blood loss anemia versus dilution (hemoglobin dropped from 12.1 down to 10.4) with hematoma noted on CT scan of pelvis 4. Hyponatremia 5. Urinary tract infection 6. Orthostatic hypotension The following therapies will be needed: 1. Physical therapy: for transfers and ambulation and stairs. 2. Occupational therapy: for ADL's and transfers. 3. Medical management: for the above conditions. 4. 24 hour Rehabilitation Nursing to monitor and address the following: Patient requires close monitoring of her blood pressures as well as monitoring for evidence of sepsis in view of the UTI. She requires close monitoring regarding her cough as well as pain assessment and management. [facility] Patient Stated Medical History Cataracts Yes: 2014 Glaucoma Yes Hearing Loss Yes Other Yes Cellulitis Yes Clostridium Difficile Yes: [id number] (fecal transplant) Clinic Medical History (Last Updated 07/23/17 @ 17:06 by Monica Prado APRN) Adenomatous colon polyp (Acute Medical) Age related osteoporosis (Acute Medical) Anemia (Acute Medical) Clostridium difficile enterocolitis (Acute Medical) Diverticulosis (Acute Medical) Dyslipidemia (Acute Medical) Glaucoma (Acute Medical) Meniere's disease (Acute Medical) Squamous cell carcinoma of lower leg (Acute Medical) No active medical problems (Acute Medical) Surgical History: Hysterectomy-vaginal. Bladder repair. lumbar laminectomy. colonoscopy. Cataract procedure Family History: Family History (Last Reviewed 03/06/17 @ 11:57 by Anant Durand MD) Father No problems noted. Family History Updates: Mother- CHF. Brother- Lung CA. Sister- MVA - Social History Smoking status: Former smoker (smoked from ages 30 to age 50, 1/2 pack daily) Packs per day: 0.5 Packs-years: 10 Substance use type: does not use Alcohol intake: former Alcohol intake frequency: does not drink Housing: house Household members: none Current occupational status: retired Current residence: Apartment/Private Home Social history: Patient lives alone in her home. 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 Her about 11 years ago. 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 Review of Systems - Constitutional Constitutional: Absent: anorexia, chills, fatigue, fever(s), headache(s), lethargy, malaise, night sweats, weakness, weight gain, weight loss - EENMT Eyes: Present: diplopia (right eye has decreased vision and is often laterally deviated.). Absent: blurry vision, change in vision Mouth/Throat: Absent: changes in swallowing, painful swallowing, change in taste , bleeding gums, change in voice - Cardiovascular Cardiovascular: Absent: chest pain, palpitations, syncope, dyspnea on exertion, orthopnea, edema, cyanosis, heart murmur Rhythm: Present: regular rhythm Vascular: Absent: intermittent claudication, pedal edema, unilateral swelling - Respiratory Respiratory: Present: cough. Absent: dyspnea, hemoptysis, dyspnea on exertion, wheezing, pain on inspiration, chest congestion, excessive phlegm production - Gastrointestinal Gastrointestinal: Present: constipation, diarrhea. Absent: abdominal pain, change in bowel habits, dyspepsia, dysphagia, early satiety, hematochezia, melena, nausea, vomiting - Genitourinary Genitourinary: Present: urinary incontinence - Musculoskeletal Musculoskeletal: Present: myalgias. Absent: abnormal gait, arthralgias, back pain, joint swelling, limited range of motion, muscle weakness - Integumentary/Breasts Integumentary: Absent: alopecia, erythema, lesions, pruritus, rash, jaundice - Neurological Neurological: Absent: abnormal gait, abnormal movements, abnormal speech, confusion, convulsions, dizziness, focal weakness, frequent falls, headache(s), loss of vision, memory loss, numbness, paresthesias, tremor(s) - Psychiatric Psychiatric: Absent: abnormal sleep pattern, anxiety, depression - Endocrine Endocrine: Absent: cold intolerance, flushing, heat intolerance, palpitations - Hematologic/Lymphatic Hematologic/Lymphatic: Absent: easy bleeding, easy bruising, lymphadenopathy - Allergic/Immunologic Allergic/Immunologic: Absent: urticaria Medications Home Medications Medication Instructions Recorded Confirmed Type Latanoprost 1 drop BOTH EYES HS #0 01/16/16 07/23/17 History Multivitamin [One Daily 1 each PO DAILY 02/05/17 07/23/17 History Multivitamin] [place]-3 Fatty Acids/Fish Oil [Fish 2 cap PO DAILY 02/05/17 07/23/17 History Oil 1,000 mg Softgel] Aspirin [Ecotrin] 81 mg PO DAILY 07/23/17 07/23/17 History Timolol 0.25% Eye Drops [Timoptic 1 drops EACH EYE DAILY 07/23/17 07/23/17 History 0.25% Eye Drops] Allergies Allergy/AdvReac Type Severity Reaction Status Date / Time furosemide Allergy Intermediate RASH Verified 07/23/17 12:40 Cephalosporins Allergy Mild RASH Verified 07/23/17 12:40 levofloxacin Allergy Mild RASH Verified 07/23/17 12:40 Sulfa (Sulfonamide Allergy Mild RASH Verified 07/23/17 12:40 Antibiotics) tetracycline Allergy Mild RASH Verified 07/23/17 12:40 Results IRU - Labs Labs: I have reviewed chart data from her acute inpatient admission. Exam - Constitutional Present: no acute distress, well nourished, well developed, average body habitus , cooperative - Routine HEENT Exam Head: Present: normocephalic, atraumatic. Absent: cushingoid faces, abrasion, laceration, hematoma Eye: Present: PERRL (pupils are equal but small bilaterally.). Absent: EOMI ( patient states that she sees out of her left eye predominantly. 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 Absent: lymphadenopathy, thyromegaly, tenderness, swelling - Routine Chest/Breast/Axilla Exam Chest wall: Absent: tenderness, mass Axillae: Absent: lymphadenopathy, mass - Routine Respiratory Exam Present: CTA bilaterally. Absent: accessory muscle use, decreased breath sounds , prolonged expiratory phase, rales, respiratory distress, rhonchi, stridor, wheezes, crackles, distant breath sounds - Routine Cardiovascular Exam Present: RRR, S1, S2, no murmur. Absent: gallop, S3, S4, click, irregular rhythm - Routine Abdominal Exam Present: soft, normoactive bowel sounds, non distended, non tender. Absent: rebound, guarding, firm, rigid, organomegaly, mass, hernia, wound - Routine Extremities Exam Present: no edema, non tender, pulses intact. Absent: cyanosis, clubbing Comments: Has some scarring on the lower extremities status post squamous cell carcinoma removal. Also has chronic venous stasis changes of both lower extremities. No edema at present. - Routine Back/Spine/Pelvis Exam Back/Spine: Present: full ROM. Absent: scoliosis, kyphosis - Routine Skin Exam Present: intact, dry, warm. Absent: cyanosis, erythema, pallor, mottling, petechiae, urticaria, lesions, jaundice Comments: Venous stasis dermatitis both lower extremities. - Routine Neurological Exam Present: alert, oriented X3, CN II-XII intact, moving all extremities, normal speech - Routine Psychiatric Exam Present: normal affect, normal thought process, cooperative, good insight, good judgment. Absent: depressed, anxious Sepsis Assessment - Evaluation Severe Sepsis: none seen IRU A/P (1) Pubic ramus fracture Qualifiers: Encounter type: initial encounter Fracture type: closed Laterality: left Qualified Code(s): S32.592A - Other specified fracture of left pubis, initial encounter for closed fracture Current visit: No Status: Acute Patient has acute left superior and inferior pubic rami fractures. She has significant pain from this as well as a pelvic hematoma noted on CT scan. She is at risk for further bleeding as well as at risk for uncontrolled pain and skin breakdown in the event of immobility. She requires a multidisciplinary approach for her recovery. (2) Acute blood loss anemia Current visit: Yes Status: Acute Her hemoglobin has dropped since admission and she does have evidence of hematoma on pelvic CT scan. Some of the hemoglobin drop may well be due to dilution from rehydration. We will monitor this. (3) Hyponatremia Current visit: Yes Status: Acute The patient's sodium remains low but improved. This needs to be monitored as well. (4) UTI (urinary tract infection) Qualifiers: Urinary tract infection type: acute cystitis Hematuria presence: without hematuria Qualified Code(s): N30.00 - Acute cystitis without hematuria Current visit: Yes Status: Acute Patient has received her single dose of fosfomycin. She will be monitored carefully for any evidence of further infection or complications. (5) Syncope Qualifiers: Syncope type: unspecified Qualified Code(s): R55 - Syncope and collapse Current visit: Yes Status: Acute Patient apparently expressed an episode of syncope at home. She does report a severe cough for the past couple of days which may have resulted in tussive syncope. Alternatively, she does have history of orthostatic hypotension which may have been a factor. She may well have been dehydrated as evidenced by the echocardiogram. In any event, she is at risk for further neurologic changes and will be monitored carefully. DVT Prophylaxis: SCD's, Lovenox Resuscitation Status: Full Code - Course Hospital Course: Alex Painting MD: - Interventions to Obtain Goals PT Treatment Plan: Balance/Proprioception, Functional Activities, Gait Training , Patient/Family Education, Therapeutic Exercise OT Treatment Plan: ADL (Basic Care), Balance Training, IADL, Pt./Family Education Goals Progress/Modifications: This patient has multiple medical problems including acute blood loss anemia, pain from her pelvic fracture, hyponatremia and recent syncope. She requires a multidisciplinary approach with physical therapy, occupational therapy, 24 rehabilitation nursing and medical supervision for her recovery.
--- NOTE | 2017-07-25 15:26 | IRU 24Hr Post Admit Eval ---
24 Hr Post Admission Physical - Relevant Changes Relevant Changes: No Reviewed: I have reviewed the patient's information and concur with the finding and results of the pre-admission screen. Certification: I certify the patient for rehabilitation. - Patient Condition (1) Pubic ramus fracture Status: Acute Qualifiers: Encounter type: initial encounter Fracture type: closed Laterality: left Qualified Code(s): S32.592A - Other specified fracture of left pubis, initial encounter for closed fracture Code(s): S32.599A - Other specified fracture of unspecified pubis, initial encounter for closed fracture Classification: Present on IRF Admission, IRF Tx That Should Address Diagnosis, Diagnosis Requiring Medical Follow Up (2) Acute blood loss anemia Status: Acute Code(s): D62 - Acute posthemorrhagic anemia Classification: Present on IRF Admission, IRF Tx That Should Address Diagnosis, Diagnosis Requiring Medical Follow Up (3) Hyponatremia Status: Acute Code(s): E87.1 - Hypo-osmolality and hyponatremia Classification: Present on IRF Admission, IRF Tx That Should Address Diagnosis, Diagnosis Requiring Medical Follow Up (4) UTI (urinary tract infection) Status: Acute Qualifiers: Urinary tract infection type: acute cystitis Hematuria presence: without hematuria Qualified Code(s): N30.00 - Acute cystitis without hematuria Code(s): N39.0 - Urinary tract infection, site not specified Classification: Present on IRF Admission, IRF Tx That Should Address Diagnosis, Diagnosis Requiring Medical Follow Up (5) Syncope Status: Acute Qualifiers: Syncope type: unspecified Qualified Code(s): R55 - Syncope and collapse Code(s): R55 - Syncope and collapse Classification: Diagnosis Requiring Medical Follow Up - Prior Functional Status Lives With: Alone Residence Type: Apartment/Private Home Assitive Devices: None Prior Functional Status: Indep. at home or school, Indep. w/ IADL - Current Functional Status Current Level of Function: Current level of function is as follows: She is independent for eating, require supervision for grooming, minimum assistance for upper body dressing but total assistance for lower body dressing. She requires moderate assistance for bed/ chair/wheelchair transfers, total assistance for walking with a rolling walker 40 feet. The patient is limited by significant pain and markedly reduced balance. She has decreased strength, poor safety awareness and easy fatigability. Failed Alternative Therapy: Arrived from Acute Care Patient Requirements: The patient requires oversight by rehabilitation physician to manage their rehabilitation treatment plan and multidisciplinary approach to care that can only be provided in an IRF and requires a multidisciplinary approach to care, provided by professional PTs, OTs, STs, dieticians, RTs, rehabilitation nurses and is not available in lesser levels of care. Limitations Req: Mobility Impairment, ADL Impairment Physical Therapy Minutes: 90 Occupational Therapy Minutes: 90 Therapy: The patient is to receive therapy at least 5 days a week. ROM Deficit: Left Lower Extremity - Complications/Comorbidities Impact on Functional Outcomes: The patient's pain and recent fracture may negatively impact her functional outcome. In addition her sodium and hemoglobin require close monitoring to ensure no further decline. Barriers to Discharge: Weakness, Balance, Pain Control - Plan to Avoid Complications Plan to Avoid Complications: The patient cannot receive this care in a lesser intensive setting such as Usp or Outpatient Therapy due to the patient requiring the following : This patient requires close monitoring of her vital signs, sodium and hemoglobin as well as assessment of her pain to allow early mobility and reduce risk of skin breakdown. She requires a multidisciplinary approach with physical therapy and occupational therapy with medical supervision and 24 hour rehabilitation nursing monitoring.
[2017-07-25 16:29] VITALS: BMI 28.5
[2017-07-25] MEDS ORDERED: HYDROCODONE/APAP 5mg/325mg TABLET PO PRN (16:51)
[2017-07-25] MEDS ORDERED: ACETAMINOPHEN 325 MG TABLET PO PRN (16:51)
[2017-07-25] MEDS ORDERED: ONDANSETRON ODT 4 MG TABLET PO PRN (18:31)
[2017-07-25] MEDS: LATANOPROST 0.005% EYE DROPS 2.5ml EACH EYE SCH (21:42)
[2017-07-25] MEDS ORDERED: SALINE FLUSH 10ml SYRINGE IV PRN (21:45)
[2017-07-25] MEDS: ALBUTEROL/IPRATROPIUM 2.5mg-0.5mg/3ml NEB AEROSOL SCH (23:36)
[2017-07-26] MEDS: ALBUTEROL/IPRATROPIUM 2.5mg-0.5mg/3ml NEB AEROSOL SCH (04:49)
[2017-07-26] MEDS ORDERED: BACLOFEN 10 MG TABLET PO PRN (07:27)
[2017-07-26] MEDS: OMEGA-3 ACID ESTERS 1 GM CAPSULE PO SCH (08:43)
[2017-07-26] MEDS: POLYETHYL GLYCOL 3350 17gm PACKET PO SCH (08:43)
[2017-07-26] MEDS: CALCITONIN NASAL SPRAY 3.7ml NS SCH (08:44)
[2017-07-26] MEDS: EYE EACH EYE SCH (08:45)
[2017-07-26] MEDS: TIMOLOL 0.25% EACH EYE SCH (08:45)
[2017-07-26] MEDS: CALCIUM 600 + VIT D 400 TABLET PO SCH ×2 (08:46→22:23)
[2017-07-26] MEDS: MULTI-VITAMIN + MINERAL TABLET PO SCH (08:46)
[2017-07-26] MEDS: ASPIRIN *EC* 81 MG TABLET PO SCH (08:46)
[2017-07-26] MEDS: ENOXAPARIN 40 MG/0.4 ML INJECTION SQ SCH (08:46)
--- NOTE | 2017-07-26 08:47 | Consult Note ---
Consult Information - Data of Consult Consult date: 07/26/17 Requesting Physician: Alex Painting MD Primary Care Provider: Matt Ahuja MD - Consult Narrative Reason for consult: Medical management History of present illness: Kathie is seen this mronign in consultation from Dr. Painting for medical management of existing comorbidities. Patient is known to the Hospital services from previous acute admission. Kathie was initially admitted on 07/23/17 to the hospitalist services following a fall resulting in a pubic rami fracture. She was found to have a Providencia Rettgeri UTI and was treated with a one-time dose of Monuril. Pain control was managed using [place] and Tylenol. Patient continued to display diminished strength and endurance related to the acute pain of her pelvic fracture. Patient was screened and accepted to the inpatient rehabilitation unit under the care of Dr. Painting for ongoing strengthening. She is seen this morning for initial consultation. Following breakfast. She is alert, oriented and pleasant. Reports no pelvic pain at rest. However, with minimal movement including transferring out of bed or ambulation. She has increased pelvic pain. He denies having any dysuria or urinary frequency. Her bowels did move today, and appetite has continued to improve. Morning labs are reviewed, hemoglobin has been stable at 10.8. She is noted to have mild hypokalemia, potassium of 3.3, otherwise unremarkable. Vital signs stable. Past Medical History Medical History: Medical History (Last Updated 07/23/17 @ 17:06 by Monica Prado, NATE) Adenomatous colon polyp Age related osteoporosis Anemia Clostridium difficile enterocolitis Diverticulosis Dyslipidemia Glaucoma Meniere's disease No active medical problems Squamous cell carcinoma of lower leg Surgical History: Hysterectomy-vaginal. Bladder repair. lumbar laminectomy. colonoscopy. Cataract procedure Family History: Father-coronary artery disease Mother-congestive heart failure Brother-lung cancer Family History: As Above - Social History Smoking status: Former smoker Substance use type: does not use Alcohol intake frequency: does not drink Housing: house Current occupational status: retired Current residence: Apartment/Private Home Social history: Primary care provider-Dr. Matt Auhja Review of Systems All systems PM: 10-point ROS was reviewed, no additional remarkable complaints except - Musculoskeletal Musculoskeletal: Present: as per HPI, other (Pelvic pain) Medications Home Medications Medication Instructions Recorded Confirmed Type Latanoprost 1 drop BOTH EYES HS #0 01/16/16 07/25/17 History Multivitamin [One Daily 1 each PO DAILY 02/05/17 07/25/17 History Multivitamin] Baker-3 Fatty Acids/Fish Oil [Fish 2 cap PO DAILY 02/05/17 07/25/17 History Oil 1,000 mg Softgel] Aspirin [Ecotrin] 81 mg PO DAILY 07/23/17 07/25/17 History Timolol 0.25% Eye Drops [Timoptic 1 drops EACH EYE DAILY 07/23/17 07/25/17 History 0.25% Eye Drops] Allergies Allergy/AdvReac Type Severity Reaction Status Date / Time furosemide Allergy Intermediate RASH Verified 07/25/17 18:33 Cephalosporins Allergy Mild RASH Verified 07/25/17 18:33 levofloxacin Allergy Mild RASH Verified 07/25/17 18:33 Sulfa (Sulfonamide Allergy Mild RASH Verified 07/25/17 18:33 Antibiotics) tetracycline Allergy Mild RASH Verified 07/25/17 18:33 Exam Vital Signs: Temperature 97.7 F 07/25/17 21:46 Pulse Rate 99 07/25/17 21:46 Respiratory Rate 18 07/26/17 04:49 Blood Pressure 142/72 H 07/25/17 21:46 Pulse Oximetry 95 07/26/17 04:49 Height/Weight/BMI: Height 1.63 m Weight 75.4 kg Body Mass Index 28.5 - Constitutional Present: no acute distress, well nourished, well developed - Routine HEENT Exam Eye: Present: EOMI ENT: Present: mucous membranes moist, dentition normal - Routine Respiratory Exam Present: CTA bilaterally. Absent: wheezes - Routine Cardiovascular Exam Present: RRR, S1, S2. Absent: murmur - Routine Abdominal Exam Present: soft, normoactive bowel sounds, non distended. Absent: tenderness - Routine Extremities Exam Present: normal capillary refill - Routine Back/Spine/Pelvis Exam Comments: Generalized pelvic pain L>R - Routine Skin Exam Present: intact, dry, warm - Routine Neurological Exam Present: alert, oriented X3, CN II-XII intact, moving all extremities - Routine Psychiatric Exam Present: normal affect, cooperative Results - Labs CBC & Chem 7: 07/26/17 05:13 07/26/17 05:13 Assessment and Plan Assessment and Plan: Impression Left superior and inferior pubic rami fractures Acute blood loss anemia versus dilution (hemoglobin dropped from 12.1 down to 10.4) with hematoma noted on CT scan of pelvis Recent Urinary tract infection- Resolved and treated Orthostatic hypotension- Resolved Diverticulosis Dyslipidemia Glaucoma Meniere's disease Squamous cell carcinoma of lower leg Hx Clostridium difficile Plan Agree with admission to inpatient rehabilitation unit under the care of Dr. Painting. Continue to work on pain control with [place] and Tylenol. Follow routine hemoglobin every few days. Given there is a known hematoma in patient's pelvis. She does continue to be on Lovenox for DVT prophylaxis. Encourage bowel motivation, given she is at high risk for constipation due to pelvis fracture. Continuing on scheduled MiraLAX daily and MOM PRN. Coverage work with PT and OT for ongoing strengthening and improve function. Hospital services will continue to follow patient medically manage existing comorbidities. At time of discharge medical care will return to patient's primary care provider , Dr. Ahuja DVT Prophylaxis: SCD's Resuscitation Status: Full Code - Time spent with patient Time with patient PN: 50 minutes - Physician Narrative Physician: James Melendez MD Narrative: Date: 07/26/17 Time: 2005 Have independently interviewed and examined pt. Chart reviewed. Case discussed with my [employer]OR[employer]ET[employer] SPECIALIST. Above care plan developed with my supervision; agree with above. Admitted to IRU for restorative therapy following pelvic fracture. Doing well this evening. Notes pain controlled-Tylenol has been very helpful. Left leg does feel 'stiffer' and hard to raise, has discomfort with movement. Tolerating therapy well. Breathing well. Eating okay, slight nausea. Bowel moving. Lungs: clear bilaterally, no distress CV: regular MSE: awake alert appropriate Plan: Agree with admission of patient to IRU to maximize functional status. Encourage PT/OT to help patient make physical gains. Continue with pain control. Will need intermittent monitoring of hemoglobin due to anemia and Lovenox use. Medically stable for IRU floor activities. Hospital Course Summary Disclaimer: The visit summary below is not to be considered part of the above Progress Note. 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 Painting Continue to work on pain control with [place] and Tylenol Follow routine hemoglobin every few days. Given there is a known hematoma in patient's pelvis. She does continue to be on Lovenox for DVT prophylaxis Encourage bowel motivation, given she is at high risk for constipation due to pelvis fracture. Continuing on scheduled MiraLAX daily and MOM PRN Coverage work with PT and OT for ongoing strengthening and improve function Hospital services will continue to follow patient medically manage existing comorbidities. At time of discharge medical care will return to patient's primary care provider , Dr. Ahuja
[2017-07-26] MEDS ORDERED: [UNRECOGNIZED DRUG - OTHER] PO SCH (09:00)
[2017-07-26] MEDS ORDERED: FATTY ACIDS PO SCH (09:00)
[2017-07-26] MEDS ORDERED: FISH OIL PO SCH (09:00)
[2017-07-26] MEDS ORDERED: NON-FORMULARY MEDICATION 1 EACH EACH (Multivitamin [One Daily Multivitamin] 1 EACH) PO SCH (09:00)
[2017-07-26] MEDS ORDERED: OMEGA PO SCH (09:00)
[2017-07-26] MEDS: HYDROCODONE/APAP 5mg/325mg TABLET PO PRN ×2 (09:29→15:48)
[2017-07-26] MEDS ORDERED: ALBUTEROL/IPRATROPIUM 2.5mg-0.5mg/3ml NEB AEROSOL PRN (10:46)
[2017-07-26] MEDS: LATANOPROST 0.005% EYE DROPS 2.5ml EACH EYE SCH (22:23)
[2017-07-27] MEDS: ASPIRIN *EC* 81 MG TABLET PO SCH (08:30)
[2017-07-27] MEDS: CALCIUM 600 + VIT D 400 TABLET PO SCH ×2 (08:30→21:25)
[2017-07-27] MEDS: OMEGA-3 ACID ESTERS 1 GM CAPSULE PO SCH (08:30)
[2017-07-27] MEDS: ENOXAPARIN 40 MG/0.4 ML INJECTION SQ SCH (08:31)
[2017-07-27] MEDS: CALCITONIN NASAL SPRAY 3.7ml NS SCH (08:31)
[2017-07-27] MEDS: MULTI-VITAMIN + MINERAL TABLET PO SCH (08:31)
[2017-07-27] MEDS: TIMOLOL 0.25% EACH EYE SCH (08:32)
[2017-07-27] MEDS: EYE EACH EYE SCH (08:32)
[2017-07-27] MEDS: POLYETHYL GLYCOL 3350 17gm PACKET PO SCH (08:32)
--- NOTE | 2017-07-27 11:05 | IRU Progress Note ---
- Subjective/Serverity of Illness Date: 07/27/17 Kathie reports some lightheadedness. She is not certain when this started. It is not clear if this started prior to admission or not. In addition, her description is somewhat difficult to understand as she relates it to some queasiness or reduced appetite. However she specifically states it is not a vertigo type sensation. It is also not clear if this is worse when she is sitting or standing. Hemoglobin did drop from 12 down to 10 g percent but is been stable since that time. Blood pressures as measured supine and sitting appear to be stable and unremarkable. Therefore, it is possible that what she is describing as "lightheadedness" is actually more of a queasiness. I'm also wondering if it might be due to her use of hydrocodone although she is not excessively using it. Otherwise, she is doing exceptionally well with therapy. She still has to work on steps. She is improving with her ambulatory ability and ADLs. With regard to her cough, this appears to be still an issue although it is improved. After just a scant amount of sputum. No shortness of breath particularly. Exam Vital Signs: Temperature 98.2 F 07/27/17 08:00 Pulse Rate 90 07/27/17 08:00 Respiratory Rate 20 07/27/17 08:00 Blood Pressure 156/78 H 07/27/17 08:00 Pulse Oximetry 91 07/27/17 08:00 Height/Weight/BMI: Height 1.63 m Weight 75.4 kg Body Mass Index 28.5 - Constitutional Present: mild distress, well nourished, well developed, cooperative - Routine HEENT Exam Eye: Present: EOMI ENT: Present: mucous membranes moist, oropharynx clear - Routine Neck Exam Present: supple - Routine Respiratory Exam Present: CTA bilaterally. Absent: wheezes - Routine Cardiovascular Exam Present: RRR, S1, S2. Absent: murmur - Routine Abdominal Exam Present: soft, normoactive bowel sounds, non distended. Absent: tenderness - Routine Extremities Exam Present: no edema, normal capillary refill - Routine Skin Exam Present: dry, warm - Routine Neurological Exam Present: alert, oriented X3, CN II-XII intact - Routine Psychiatric Exam Present: normal affect, normal thought process, cooperative, good insight, good judgment Results IRU - Labs Labs: Have reviewed labs and other providers notes. IRU A/P (1) Pubic ramus fracture Qualifiers: Encounter type: initial encounter Fracture type: closed Laterality: left Qualified Code(s): S32.592A - Other specified fracture of left pubis, initial encounter for closed fracture Current visit: No Status: Acute Continues to have pain with movement but overall improved. No edema is noted. (2) Acute blood loss anemia Current visit: Yes Status: Acute Hemoglobin has been stable at around 10 g percent since it fell from 12 g percent initially. (3) Hyponatremia Current visit: Yes Status: Resolved Sodium improved to normal as of yesterday. (4) UTI (urinary tract infection) Qualifiers: Urinary tract infection type: acute cystitis Hematuria presence: without hematuria Qualified Code(s): N30.00 - Acute cystitis without hematuria Current visit: Yes Status: Acute (5) Syncope Qualifiers: Syncope type: unspecified Qualified Code(s): R55 - Syncope and collapse Current visit: Yes Status: Acute (6) Lightheadedness Current visit: Yes Status: Acute Patient describes what appears to be new onset of lightheadedness. Does not appear to be vertigo. She relates to some queasiness so it is not clear if it is really "lightheadedness" or more of a nausea issue. This may be related to use of narcotics. Has not displayed any further evidence of syncope. He medical and has been stable. DVT Prophylaxis: SCD's Resuscitation Status: Full Code - Course Hospital Course: Alex Painting MD: 07/27/17 11:05 Doing extremely well with therapy. Cooperative. Will work on stairs. Hemoglobin stable. Complains of lightheadedness. - Interventions to Obtain Goals PT Treatment Plan: Balance/Proprioception, Functional Activities, Gait Training , Patient/Family Education, Therapeutic Exercise OT Treatment Plan: ADL (Basic Care), Balance Training, IADL, Ther. Exercise for ADL Goals Progress/Modifications: Patient is doing well with therapy. However she does complain of lightheadedness which appears to be a new symptom. She specifically states this does not appear to be consistent with vertigo. It is also not clear if it is related to position or not. We will start checking orthostatic blood pressures. Her hemoglobin has been stable. It may be related to the use of the hydrocodone. We'll need to keep a close eye on this as she apparently did pass out at home. Her coughing appears to be improved.
[2017-07-27] MEDS: LATANOPROST 0.005% EYE DROPS 2.5ml EACH EYE SCH (21:25)
[2017-07-28] MEDS: MULTI-VITAMIN + MINERAL TABLET PO SCH (08:42)
[2017-07-28] MEDS: OMEGA-3 ACID ESTERS 1 GM CAPSULE PO SCH (08:42)
[2017-07-28] MEDS: ENOXAPARIN 40 MG/0.4 ML INJECTION SQ SCH (08:42)
[2017-07-28] MEDS: ASPIRIN *EC* 81 MG TABLET PO SCH (08:42)
[2017-07-28] MEDS: CALCITONIN NASAL SPRAY 3.7ml NS SCH (08:42)
[2017-07-28] MEDS: CALCIUM 600 + VIT D 400 TABLET PO SCH ×2 (08:42→21:32)
[2017-07-28] MEDS: TIMOLOL 0.25% EACH EYE SCH (08:43)
[2017-07-28] MEDS: POLYETHYL GLYCOL 3350 17gm PACKET PO SCH (08:43)
[2017-07-28] MEDS: EYE EACH EYE SCH (08:43)
--- NOTE | 2017-07-28 10:36 | IRU Progress Note ---
- Subjective/Serverity of Illness Date: 07/28/17 Kathie states that pain is well managed at the present time. Mainly hurts when she is up and about as anticipated. Last intake of hydrocodone was a couple of days ago. She is resting okay at night. She reports cough is improved. She denies shortness of breath. She continues to have mild nausea/queasiness after breakfast. She is cooperative with therapy and making progress. Sodium remains slightly low at 133. Potassium slightly low as well. Her blood pressure if anything is running a bit high. She previously had some orthostasis. That apparently has resolved. Exam Vital Signs: Temperature 98.5 F 07/28/17 08:00 Pulse Rate 88 07/28/17 08:00 Respiratory Rate 18 07/28/17 08:00 Blood Pressure 170/71 H 07/28/17 08:00 Pulse Oximetry 92 07/28/17 08:00 Height/Weight/BMI: Height 1.63 m Weight 75.4 kg Body Mass Index 28.5 - Constitutional Present: no acute distress, well nourished, well developed, cooperative - Routine HEENT Exam Head: Present: normocephalic Eye: Present: EOMI ENT: Present: mucous membranes moist, oropharynx clear - Routine Neck Exam Present: supple - Routine Respiratory Exam Present: CTA bilaterally. Absent: wheezes - Routine Cardiovascular Exam Present: RRR, S1, S2. Absent: murmur - Routine Abdominal Exam Present: soft, normoactive bowel sounds, non distended. Absent: tenderness - Routine Extremities Exam Present: no edema, normal capillary refill - Routine Skin Exam Present: dry, warm - Routine Neurological Exam Present: alert, oriented X3, CN II-XII intact - Routine Psychiatric Exam Present: normal affect, cooperative, good insight, good judgment Results IRU - Labs Labs: Have reviewed patient's labs and other providers notes. IRU A/P (1) Pubic ramus fracture Qualifiers: Encounter type: initial encounter Fracture type: closed Laterality: left Qualified Code(s): S32.592A - Other specified fracture of left pubis, initial encounter for closed fracture Current visit: No Status: Acute She has the anticipated amount of discomfort in the left pelvic area from her fracture. Last intake of hydrocodone was a couple days ago. She seems to be fairly comfortable at the present time and is cooperative with therapy and making progress. (2) Acute blood loss anemia Current visit: Yes Status: Acute Repeat hemoglobin today is stable at 10 g percent. No evidence of ongoing bleeding at present. (3) Hyponatremia Current visit: Yes Status: Acute Her sodium remains slightly low at 133. It was improved but is now low again. Whether this is due to SIADH or another reason is not clear. She is not on a diuretic. (4) UTI (urinary tract infection) Qualifiers: Urinary tract infection type: acute cystitis Hematuria presence: without hematuria Qualified Code(s): N30.00 - Acute cystitis without hematuria Current visit: Yes Status: Resolved (5) Syncope Qualifiers: Syncope type: unspecified Qualified Code(s): R55 - Syncope and collapse Current visit: Yes Status: Resolved (6) Lightheadedness Current visit: Yes Status: Acute Continues to complain of queasiness. Uncertain if this is true lightheadedness or not. Nevertheless this is improved. DVT Prophylaxis: SCD's Resuscitation Status: Full Code - Course Hospital Course: Alex Painting MD: 07/27/17 11:05 Doing extremely well with therapy. Cooperative. Will work on stairs. Hemoglobin stable. Complains of lightheadedness. 07/28/17 10:37 Continues to be a bit queasy in the mornings. Otherwise no orthostasis and no syncope nor presyncope. She is cooperative with therapy and making progress. Repeat hemoglobin is normal. - Interventions to Obtain Goals PT Treatment Plan: Balance/Proprioception, Functional Activities, Gait Training , Patient/Family Education, Therapeutic Exercise OT Treatment Plan: ADL (Basic Care), Balance Training, IADL, Ther. Exercise for ADL Goals Progress/Modifications: Kathie is doing well with therapy. Pain appears to be adequately managed. Last hydrocodone was a couple of days ago. Unfortunately her sodium and potassium are a bit low. Blood pressure is running a bit high which may be due to pain. Does not exhibit evidence of true lightheadedness nor orthostasis at present. No evidence of further blood loss with repeat hemoglobin today stable at 10 g percent. Team meeting this noon for further input on length of stay. She is doing well with therapy.Please note that the patient's individual plan of care was developed and documented today, requiring review of therapy notes, medical conditions and anticipated functional recovery. This required additional medical decision making with regard to interaction of the patient's medical issues with the anticipated functional recovery. Please see separate document
--- NOTE | 2017-07-28 10:40 | IRU Plan of Care ---
[facility] Overall Plan of Care - Date Date: 07/28/17 - Patient Impairments (1) Pubic ramus fracture Qualifiers: Encounter type: initial encounter Fracture type: closed Laterality: left Qualified Code(s): S32.592A - Other specified fracture of left pubis, initial encounter for closed fracture Code(s): S32.599A - Other specified fracture of unspecified pubis, initial encounter for closed fracture Status: Acute Classification: Present on IRF Admission, IRF Tx That Should Address Diagnosis, Diagnosis Requiring Medical Follow Up (2) Acute blood loss anemia Code(s): D62 - Acute posthemorrhagic anemia Status: Acute Classification: Present on IRF Admission, IRF Tx That Should Address Diagnosis, Diagnosis Requiring Medical Follow Up (3) Hyponatremia Code(s): E87.1 - Hypo-osmolality and hyponatremia Status: Acute Classification: Present on IRF Admission, IRF Tx That Should Address Diagnosis, Diagnosis Requiring Medical Follow Up (4) UTI (urinary tract infection) Qualifiers: Urinary tract infection type: acute cystitis Hematuria presence: without hematuria Qualified Code(s): N30.00 - Acute cystitis without hematuria Code(s): N39.0 - Urinary tract infection, site not specified Status: Resolved Classification: Present on IRF Admission, IRF Tx That Should Address Diagnosis, Diagnosis Requiring Medical Follow Up (5) Syncope Qualifiers: Syncope type: unspecified Qualified Code(s): R55 - Syncope and collapse Code(s): R55 - Syncope and collapse Status: Resolved Classification: Diagnosis Requiring Medical Follow Up (6) Lightheadedness Code(s): R42 - Dizziness and giddiness Status: Acute Classification: Diagnosis Requiring Medical Follow Up - Relevant Changes Relevant Changes: No Reviewed: I have reviewed the patient's information and concur with the finding and results of the pre-admission screen. Certification: I certify the patient for rehabilitation. - Medical Prognosis Medical Prognosis: Good Vital Signs: Last Vital Signs Temp 98.5 F 07/28/17 08:00 Pulse 88 07/28/17 08:00 Resp 18 07/28/17 08:00 BP 170/71 H 07/28/17 08:00 Pulse Ox 92 07/28/17 08:00 - Anticipated Interventions Anticipated Interventions: The patient requires inpatient IRF care for PT, OT, and/or ST for residuals remaining from left pubic rami fractures resulting in muscular weakness and strength deficits. An individualized overall plan of care has been developed after careful review of the patient's preadmission screening, post admission physician evaluation and assessments of all therapy disciplines and/or other pertinent clinicians involved in treating the patient. This indicates medical necessity and rehabilitation necessity have been established through a thorough review of all available medical information. - Current Functional Status Failed Alternative Therapy: Arrived from Acute Care Patient Requires: The patient requires oversight by rehabilitation physician to manage their rehabilitation treatment plan and multidisciplinary approach to care that can only be provided in an IRF and requires a multidisciplinary approach to care, provided by professional PTs, OTs, STs, rehabilitation nurses, and may require STs, dieticians, and RTS. This is not available in lesser levels of care. Physical Therapy Minutes: 90 Occupational Therapy Minutes: 90 Therapy: The patient is to receive therapy at least 5 days a week. - Anticipated LOS/Outcomes Anticipated Functional Outcome: It is anticipated the patient will be able to return to her home at independent or modified independent level of functioning. She will be able to provide her own ADLs and some IADLs. Anticipated Length of Stay (days): 4 Anticipated DC Destination: Home, Self Care, Home Health Service Home Safety Plan: The patient will be provided with the development of a Home Safety Plan for return to a home or home-like environment and and to ensure safety post discharge. - Plan to Avoid Complications Barriers to Attaining Goals: Weakness, Balance, Endurance Plan to Avoid Complications: The patient cannot receive this care in a lesser intensive setting such as Correction or Outpatient Therapy due to the patient requiring the following : Patient requires monitoring of her blood pressures which are currently running a bit elevated. She requires monitoring for neurologic effects of her low sodium and low potassium. She requires a multidisciplinary approach with skilled PT and OT with medical supervision in view of her medical issues area of these cannot be provided at a less intensive level of care.
--- NOTE | 2017-07-28 13:11 | IRU Team Meeting ---
IRU Team Meeting - Nursing Bladder Assistive Devices Utilized:: Absorbent Pad Bladder Management Level of Assist: Modified Independent Bladder Frequency of Accidents: No accidents Bowel Assistive Devices Utilized:: Absorbent Pad Bowel Management Level of Assist: Modified Independent Bowel Frequency of Accidents: No accidents; uses device Number of Bowel Accidents: 1 Vital Signs: Vital Signs - 24 hr 07/27/17 16:00 07/27/17 21:49 07/28/17 08:00 Temperature 97.8 F 97.8 F 98.5 F Pulse Rate 81 83 88 Respiratory Rate 18 Blood Pressure 152/71 H 141/69 H 170/71 H Pulse Oximetry 98 92 92 Current Medications: Acetaminophen (Tylenol) 650 mg PO Q6H PRN PRN Reason: Pain Last Admin: 07/25/17 18:16 Dose: 650 mg Acetaminophen (Tylenol) 500 mg PO Q5H PRN PRN Reason: Discomfort Hydrocodone Bitart/Acetaminophen ([place] 5/325) 1 - 2 tab PO Q4H PRN PRN Reason: Pain Last Admin: 07/26/17 15:48 Dose: 2 tab Albuterol/Ipratropium (Duoneb) 3 ml AEROSOL RTQID PRN Aspirin (Ecotrin) 81 mg PO DAILY [facility] Last Admin: 07/28/17 08:42 Dose: 81 mg Baclofen (Lioresal) 5 mg PO TID PRN PRN Reason: Spasms Calcitonin [place] (Miacalcin [place]) 1 spray NS DAILY [facility] Last Admin: 07/28/17 08:42 Dose: 1 spray Calcium/Vitamin D (Caltrate + D) 1 tab PO BID [facility] Last Admin: 07/28/17 08:42 Dose: 1 tab Enoxaparin Sodium (Lovenox) 40 mg SQ DAILY [facility] Last Admin: 07/28/17 08:42 Dose: 40 mg Latanoprost (Xalatan) 1 drops EACH EYE HS [facility] Last Admin: 07/27/17 21:25 Dose: 1 drops Magnesium Hydroxide (Mom) 30 ml PO DAILY PRN PRN Reason: Constipation Multivitamins/Minerals (Therapeutic - M) 1 tab PO DAILY [facility] Last Admin: 07/28/17 08:42 Dose: 1 tab Zsbkg-3-Ueyo Ethyl Esters (Lovaza) 2 gm PO DAILY [facility] Last Admin: 07/28/17 08:42 Dose: 2 gm Ondansetron HCl (Zofran Odt Tablet) 4 mg PO Q6H PRN PRN Reason: Nausea &/or vomiting Last Admin: 07/25/17 18:37 Dose: 4 mg Polyethylene Glycol (Miralax) 17 gm PO DAILY [facility] Last Admin: 07/28/17 08:43 Dose: Not Given Sodium Chloride (Iv Flush) 10 ml IV PRN PRN PRN Reason: Flushing Last Admin: 07/25/17 21:46 Dose: 10 ml Timolol Maleate (Timoptic 0.25% Eye Drops) 1 drops EACH EYE DAILY [facility] Last Admin: 07/28/17 08:43 Dose: 1 drops Current Medical Issues: Pelvic fracture, acute blood loss anemia, recent UTI Comments: I certify that I personally led the interdisciplinary team meeting and agree with comments, barriers and goals indicated. Team meeting was held in the patient's room with the patient and the following family members present: Two sons, one daughter, one granddaughter, one [id number] Ms. [place] continues to complain of a bit of nausea which reduces her appetite and intake. She has not had vomiting. She links this to a feeling of lightheadedness. Blood pressures have not been dropping with standing. She has not really required much pain medication with last intake of [place] being a couple of days ago. - Physical Therapy Bed, Chair, Wheelchair Transfer Assist: Modified Independent Ambulation Ability: Modified Independent Ambulation Distance: 712 Stair Climbing Ability: Contact Guard Assistance Number of Steps Climbed: 12 Car Transfer Ability: Stand By Assist/Supervision Comments: She requires additional assistance and practice with stairs as well as balance assessment. Otherwise she has met her goals with regard to gait and transfers at least modified independent level. - Occupational Therapy Eating Ability: Independent Grooming Ability: Modified Independent Bathing Ability: Stand By Assist/Supervision Upper Body Dressing Ability: Modified Independent Lower Body Dressing Ability: Stand By Assist/Supervision Tub Transfer Assist: Stand By Assist/Supervision Toileting Assist: Modified Independent Toilet Transfer Assist: Modified Independent Comments: She is very cooperative with occupational therapy as well. She is progressing with occupational therapy and ADL goals are partially met. Continue working with the patient another couple of days. - Goals Physical Therapy Goals: 07/28/17 goals: 1. Pt will perform four 8" steps with stand by assist. 2. Pt will perform [place] balance test and get a score of 24/ 28. Occupational Therapy Goals: OT goals 07/28/17: 1.) Lower body dressing with modified independence. 2.) Tub transfer with modified independence. 3.) Light meal preparation with modified independence. - Barriers to Discharge Barriers to Attaining Goals: Weakness (progressive resistive exercise training is offered.), Endurance (increasing activity tolerance is provided.), Other ( confidence: Efforts underway to increase patient's confidence levels with encouragement and repetition.) - Care Plan Anticipated Length of Stay (days): 3 Anticipated DC Destination: Home, Self Care, Home Health Service I have led this team conference and agree with the plan. Interventions/Goals: Patient requires additional training for stairs as well as working on balance. She requires a bit of additional training regarding ADLs. Anticipate safe transition to home environment with home health on Monday, July 31 if stable.
--- NOTE | 2017-07-28 14:34 | Progress Note ---
- Date 07/28/17 Subjective: Kathie is doing well. Her pelvis is only painful when she stands -- at rest she feels no pain. She has a residual cough but that's improving and she denies SOA. She has had a decent appetite and her bowels have been moving -- in fact she's been declining some of the laxatives. She has had increasing urinary frequency but no burning. Objective Vital signs: Temperature 98.5 F 07/28/17 08:00 Pulse Rate 88 07/28/17 08:00 Respiratory Rate 18 07/28/17 08:00 Blood Pressure 170/71 H 07/28/17 08:00 Pulse Oximetry 92 07/28/17 08:00 Height/Weight/BMI: Height 1.63 m Weight 75.4 kg Body Mass Index 28.5 - Constitutional Present: no acute distress, well nourished, well developed, thin - Routine HEENT Exam Head: Present: normocephalic Eye: Present: PERRL. Absent: conjunctival icterus, scleral injection ENT: Present: mucous membranes moist - Routine Respiratory Exam Present: CTA bilaterally - Routine Cardiovascular Exam Present: RRR, S1, S2 - Routine Abdominal Exam Present: soft, normoactive bowel sounds, non distended, non tender - Routine Extremities Exam Present: no edema, pulses intact - Routine Musculoskeletal Exam Musculoskeletal: Present: no clubbing or cyanosis - Routine Skin Exam Present: intact, dry, warm - Routine Neurological Exam Present: alert, oriented X3, normal speech - Routine Psychiatric Exam Present: normal affect, normal thought process, cooperative Results - Labs CBC & Chem 7: 07/28/17 07:41 07/28/17 07:41 Assessment and Plan Assessment and Plan: Impression Left superior and inferior pubic rami fractures Acute blood loss anemia versus dilution (hemoglobin dropped from 12.1 down to 10.4) with hematoma noted on CT scan of pelvis Recent Urinary tract infection- Resolved and treated Orthostatic hypotension- Resolved Hypokalemia Diverticulosis Dyslipidemia Glaucoma 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 Now with urinary frequency -- recheck UA. K slightly low at 3.5 -- KDur ordered. Recheck on 07/31. Hgb stable at 10.7 Otherwise medically stable. D/W Dr. Painting -- planning on dc on 07/31 home with home health. DVT Prophylaxis: Lovenox GI Prophylaxis: Pepcid Resuscitation Status: Full Code - Physician Narrative Narrative: Date: 07/28/17 Time: 1430 Hospital Course Summary Disclaimer: The visit summary below is not to be considered part of the above Progress Note. 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 Painting Continue to work on pain control with [place] and Tylenol Follow routine hemoglobin every few days. Given there is a known hematoma in patient's pelvis. She does continue to be on Lovenox for DVT prophylaxis Encourage bowel motivation, given she is at high risk for constipation due to pelvis fracture. Continuing on scheduled MiraLAX daily and MOM PRN Coverage work with PT and OT for ongoing strengthening and improve function Hospital services will continue to follow patient medically manage existing comorbidities. At time of discharge medical care will return to patient's primary care provider , Dr. Ahuja 07/28 UTI with Providencia rettgeri - Monurol given on 07/24. Now with urinary frequency -- recheck UA. K slightly low at 3.5 -- KDur ordered. Recheck on 07/31. Hgb stable at 10.7 Otherwise medically stable. D/W Dr. Painting -- planning on dc on 07/31 home with home health.
[2017-07-28] MEDS: FAMOTIDINE 20 MG TABLET PO SCH (15:04)
[2017-07-28] MEDS ORDERED: AMOX/CLAV 500 MG/125 MG TABLET PO SCH (20:45)
[2017-07-28] MEDS: AMOX PO SCH (21:32)
[2017-07-28] MEDS: LATANOPROST 0.005% EYE DROPS 2.5ml EACH EYE SCH (21:32)
[2017-07-28] MEDS: CLAV PO SCH (21:32)
--- NOTE | 2017-07-29 08:04 | Progress Note ---
Progress Note: Pt started on Augmentin for UTI overnight by teledoc. UA ordered yesterday d/t urinary frequency. UA +. See yesterday's progress note.
[2017-07-29] MEDS: AMOX PO SCH ×2 (08:31→17:29)
[2017-07-29] MEDS: POLYETHYL GLYCOL 3350 17gm PACKET PO SCH (08:31)
[2017-07-29] MEDS: ASPIRIN *EC* 81 MG TABLET PO SCH (08:31)
[2017-07-29] MEDS: FAMOTIDINE 20 MG TABLET PO SCH (08:31)
[2017-07-29] MEDS: EYE EACH EYE SCH (08:31)
[2017-07-29] MEDS: CALCITONIN NASAL SPRAY 3.7ml NS SCH (08:31)
[2017-07-29] MEDS: CALCIUM 600 + VIT D 400 TABLET PO SCH ×2 (08:31→21:11)
[2017-07-29] MEDS: OMEGA-3 ACID ESTERS 1 GM CAPSULE PO SCH (08:31)
[2017-07-29] MEDS: TIMOLOL 0.25% EACH EYE SCH (08:31)
[2017-07-29] MEDS: CLAV PO SCH ×2 (08:31→17:29)
[2017-07-29] MEDS: MULTI-VITAMIN + MINERAL TABLET PO SCH (08:31)
[2017-07-29] MEDS: ENOXAPARIN 40 MG/0.4 ML INJECTION SQ SCH (08:32)
[2017-07-29] MEDS: ACETAMINOPHEN 500 MG TABLET PO PRN (21:11)
[2017-07-29] MEDS: LATANOPROST 0.005% EYE DROPS 2.5ml EACH EYE SCH (21:11)
[2017-07-29] MEDS ORDERED: CLAV PO SCH (21:18)
[2017-07-29] MEDS ORDERED: AMOX PO SCH (21:18)
[2017-07-30] MEDS: AMOX PO SCH ×3 (00:33→17:28)
[2017-07-30] MEDS: CLAV PO SCH ×3 (00:33→17:28)
[2017-07-30] MEDS: ACETAMINOPHEN 500 MG TABLET PO PRN (08:45)
[2017-07-30] MEDS: MULTI-VITAMIN + MINERAL TABLET PO SCH (08:45)
[2017-07-30] MEDS: ASPIRIN *EC* 81 MG TABLET PO SCH (08:45)
[2017-07-30] MEDS: FAMOTIDINE 20 MG TABLET PO SCH (08:45)
[2017-07-30] MEDS: EYE EACH EYE SCH (08:46)
[2017-07-30] MEDS: TIMOLOL 0.25% EACH EYE SCH (08:46)
[2017-07-30] MEDS: POLYETHYL GLYCOL 3350 17gm PACKET PO SCH (08:46)
[2017-07-30] MEDS: OMEGA-3 ACID ESTERS 1 GM CAPSULE PO SCH (08:46)
[2017-07-30] MEDS: CALCITONIN NASAL SPRAY 3.7ml NS SCH (08:47)
[2017-07-30] MEDS: CALCIUM 600 + VIT D 400 TABLET PO SCH ×2 (08:47→20:54)
[2017-07-30] MEDS: ENOXAPARIN 40 MG/0.4 ML INJECTION SQ SCH (08:47)
[2017-07-30 19:54] VITALS: RESP 16
[2017-07-30] MEDS: LATANOPROST 0.005% EYE DROPS 2.5ml EACH EYE SCH (20:54)
[2017-07-31] MEDS: CLAV PO SCH ×2 (01:33→08:19)
[2017-07-31] MEDS: AMOX PO SCH ×2 (01:33→08:19)
[2017-07-31] MEDS: ASPIRIN *EC* 81 MG TABLET PO SCH (08:18)
[2017-07-31] MEDS: FAMOTIDINE 20 MG TABLET PO SCH (08:19)
[2017-07-31] MEDS: CALCIUM 600 + VIT D 400 TABLET PO SCH (08:19)
[2017-07-31] MEDS: OMEGA-3 ACID ESTERS 1 GM CAPSULE PO SCH (08:19)
[2017-07-31] MEDS: ACETAMINOPHEN 500 MG TABLET PO PRN (08:19)
[2017-07-31] MEDS: MULTI-VITAMIN + MINERAL TABLET PO SCH (08:19)
[2017-07-31] MEDS: EYE EACH EYE SCH (08:20)
[2017-07-31] MEDS: TIMOLOL 0.25% EACH EYE SCH (08:20)
[2017-07-31] MEDS: CALCITONIN NASAL SPRAY 3.7ml NS SCH (08:20)
[2017-07-31] MEDS: POLYETHYL GLYCOL 3350 17gm PACKET PO SCH (08:21)
[2017-07-31] MEDS: ENOXAPARIN 40 MG/0.4 ML INJECTION SQ SCH (08:21)
--- NOTE | 2017-07-31 09:03 | Progress Note ---
- Date 07/31/17 Subjective: Patient is seen today while getting dressed for breakfast. She is going home today. She feels she is getting better. She still has pain in the left hip area. Over the weekend she has just been using Tylenol for pain. Her appetite is good. Her granddaughter will be staying with her for a while once she goes home. Other than her pain, she has no complaints. Objective Vital signs: Temperature 97.3 F 07/30/17 19:53 Pulse Rate 95 07/30/17 19:56 Respiratory Rate 16 07/30/17 19:53 Blood Pressure 137/67 07/30/17 19:56 Pulse Oximetry 96 07/30/17 19:53 Height/Weight/BMI: Height 1.63 m Weight 75.4 kg Body Mass Index 28.5 - Constitutional Present: no acute distress, well nourished, well developed - Routine HEENT Exam Head: Present: normocephalic, atraumatic Comments: Right eye deviates to the right. - Routine Respiratory Exam Present: CTA bilaterally. Absent: wheezes - Routine Cardiovascular Exam Present: RRR, no murmur - Routine Abdominal Exam Present: soft, non distended, non tender - Routine Extremities Exam Present: no edema, normal capillary refill - Routine Skin Exam Present: dry, warm - Routine Neurological Exam Present: alert, oriented X3 - Routine Lymphatic Exam Lymphatic: Absent: adenopathy - Routine Psychiatric Exam Present: normal affect, cooperative Results - Labs CBC & Chem 7: 07/28/17 07:41 07/31/17 04:47 Microbiology Results: Microbiology 07/28/17 15:24 Urine, Voided (Cc/notcc) Urine Culture - Preliminary Gram Negative Nam Assessment and Plan Assessment and Plan: Impression Left superior and inferior pubic rami fractures Acute blood loss anemia versus dilution (hemoglobin dropped from 12.1 down to 10.4) with hematoma noted on CT scan of pelvis Urinary tract infection Orthostatic hypotension- Resolved Hypokalemia-resolved Diverticulosis Dyslipidemia Glaucoma 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 Miacalcin recommendations per Dr. Painting. I'm assuming the miacalcin is for short-term treatment for acute bone pain related to fracture and she should be converted to more effective bisphosphonate for long-term treatment of osteoporosis once her pain improves. She was also started on calcium plus vitamin D. Overall doing well. Medically stable. - Physician Narrative Narrative: Date: 07/31/17 Time: 0900 Hospital Course Summary Disclaimer: The visit summary below is not to be considered part of the above Progress Note.
[2017-07-31 09:20] VITALS: TEMP 98.3; O2SAT 94
[2017-07-31 09:21] VITALS: BP 154/66; PULSE 96
--- NOTE | 2017-07-31 10:05 | IRU Progress Note ---
- Subjective/Serverity of Illness Date: 07/31/17 Kathie was interviewed and examined on acute inpatient rehabilitation. She is ambulating safely with a front-wheeled walker. She has one at home and family is bringing that in so we can check it and adjusted if needed. She continues to have some pain in the left pelvic area. Overall it is being controlled by Tylenol. She knows that the [place] was causing some stomach upset and queasiness and she does not wish to take that at this time. She has not had a problem with Aleve in the past and she wondered about taking that. I tore that would be fine as long as it does not bother her stomach. She does have some symptoms of reflux she states and uses Tums on an as-needed basis. She was diagnosed with urinary tract infection. She is sent home on Augmentin to finish a 5 day course. Today I discussed with her the finding of the cystic lesion in the right adnexal area noted on initial pelvic CT scan. Please see letter Dr. Ahuja. I advised the patient that this needs to be followed up in the most likely a sonogram would be indicated. Exam Vital Signs: Temperature 98.3 F 07/31/17 08:00 Pulse Rate 96 07/31/17 08:00 Respiratory Rate 16 07/31/17 08:00 Blood Pressure 154/66 H 07/31/17 08:00 Pulse Oximetry 94 07/31/17 08:00 Height/Weight/BMI: Height 1.63 m Weight 75.4 kg Body Mass Index 28.5 - Constitutional Present: no acute distress, well nourished, well developed, average body habitus , cooperative - Routine HEENT Exam Head: Present: normocephalic Eye: Present: EOMI ENT: Present: mucous membranes moist, oropharynx clear - Routine Respiratory Exam Present: CTA bilaterally. Absent: wheezes - Routine Cardiovascular Exam Present: RRR, S1, S2. Absent: murmur - Routine Abdominal Exam Present: soft, normoactive bowel sounds, non distended. Absent: tenderness - Routine Extremities Exam Present: no edema - Routine Skin Exam Present: dry, warm - Routine Neurological Exam Present: alert, oriented X3, CN II-XII intact - Routine Psychiatric Exam Present: normal affect Results IRU - Labs Labs: Patient's lab results are reviewed. IRU A/P (1) Pubic ramus fracture Qualifiers: Encounter type: initial encounter Fracture type: closed Laterality: left Qualified Code(s): S32.592A - Other specified fracture of left pubis, initial encounter for closed fracture Current visit: No Status: Acute Clinically she is healing as expected. She has occasional pain but overall it is reasonably well controlled. (2) Acute blood loss anemia Current visit: Yes Status: Acute Hemoglobin has remained stable. Hematoma was seen on CT scan. (3) Hyponatremia Current visit: Yes Status: Resolved (4) UTI (urinary tract infection) Qualifiers: Urinary tract infection type: acute cystitis Hematuria presence: without hematuria Qualified Code(s): N30.00 - Acute cystitis without hematuria Current visit: Yes Status: Resolved (5) Syncope Qualifiers: Syncope type: unspecified Qualified Code(s): R55 - Syncope and collapse Current visit: Yes Status: Resolved (6) Lightheadedness Current visit: Yes Status: Acute DVT Prophylaxis: Lovenox Resuscitation Status: Full Code - Course Hospital Course: Alex Painting MD: 07/27/17 11:05 Doing extremely well with therapy. Cooperative. Will work on stairs. Hemoglobin stable. Complains of lightheadedness. 07/28/17 10:37 Continues to be a bit queasy in the mornings. Otherwise no orthostasis and no syncope nor presyncope. She is cooperative with therapy and making progress. Repeat hemoglobin is normal. 07/31/17 10:02 Clinically doing well. Discussed with patient the cystic lesion noted on initial CT scan and recommended follow-up. - Interventions to Obtain Goals PT Treatment Plan: Balance/Proprioception, Functional Activities, Gait Training , Patient/Family Education, Therapeutic Exercise OT Treatment Plan: ADL (Basic Care), Balance Training, IADL, Ther. Exercise for ADL
--- NOTE | 2017-07-31 11:36 | Discharge Summary ---
Discharge Information Date of admission: 07/25/17 14:47 Anticipated date of discharge: 07/31/17 Attending Physician: Alex Painting MD Primary care physician: Matt Ahuja MD Consults: 07/25/17 15:35 Physician Consult [CONS] Routine Consulting Provider: James Melendez Reason For Exam: medical management Ordering Provider has Notified Stem Shaper: No - Discharge Diagnosis (1) Pubic ramus fracture Status: Acute (2) Acute blood loss anemia Status: Acute (3) Hyponatremia Status: Resolved (4) UTI (urinary tract infection) Status: Resolved (5) Syncope Status: Resolved (6) Lightheadedness Status: Acute 1. Left superior and inferior pubic rami fractures 2. Acute blood loss anemia (hematoma noted on pelvic CT scan) 3. Hyponatremia-resolved 4. Urinary tract infection with recurrence requiring antibiotic therapy 5. Right adnexal cystic mass requiring further evaluation as outpatient 6. Syncope at home without recurrence - Laboratory Labs: 07/28/17 07:41 07/31/17 04:47 - Microbiology Microbiology 07/28/17 15:24 Urine, Voided (Cc/notcc) Urine Culture - Final Providencia rettgeri History of Present Illness HPI: Ms. Kathie Espana reported that she was getting up on the morning of 07/23/2017 to go to the kitchen. She then awakened on the floor. She does not recall falling. She had had a preceding 2 day history of severe coughing spells however. She was on the floor for about 3 hours. She was seen in the emergency department. CT of the head was unremarkable. CT the pelvis demonstrate a left superior and inferior pubic rami fractures along with a hematoma. There was also a right adnexal cystic lesion noted which would require further evaluation. She was admitted to the hospital because of severe pain as well as possible syncope. She was noted to have a new urinary tract infection with Providencia rettgeri. She was treated with a single dose of fosfomycin on 07/24/2017 for her UTI. She was also noted to have some hyponatremia with initial sodium down to 128. Hemoglobin dropped from 12.1 down to 10.4. Patient developed multiple functional deficits as a result of the fracture and was felt to be a good candidate for acute inpatient rehabilitation where she was transferred on 07/25/2017. Hospital Course This is a general summary of the patient's hospital course. For more details refer to the complete medical record. Ms. Espana was admitted to acute inpatient rehabilitation for a multidisciplinary , coordinated approach to her recovery. She used very little hydrocodone because she states it caused her to have an upset stomach. Pain was reasonably well managed with Tylenol alone. Her initial hemoglobin while on acute was 12.1. It was repeated on inpatient rehabilitation and was stable at around 10.7 g percent. Her sodium did drop from 134 down to 133. On the day of dismissal her sodium was 135. Her blood pressures remained stable. There was a question of orthostatic hypotension while on acute care but this was not able to be demonstrated while on acute inpatient rehabilitation. She was followed by the hospitalist service as well as Dr. Painting. Culture again grew Providencia Rettgeri as noted above while on acute inpatient rehabilitation. She was started on Augmentin in this regard. This will go for 5 days total and a prescription was provided for home. The following levels of functional competence are to be considered preliminary information. The reader is encouraged to refer to actual therapy notes and reports for specific details. The patient was seen by occupational therapy with the following functional levels noted at the conclusion of therapy: Grooming was modified independent because of need to stand with a front-wheeled walker. Bathing was modified independent level due to use of grab bars. She was independent with upper body dressing and modified independent with lower body dressing. She was modified independent with toileting assistance. Ambulatory ability is modified independent with a front-wheeled walker and she is able to ambulate over 350 feet. Patient was seen by physical therapy with the following functional levels noted at the conclusion of therapy: Bed/chair/wheelchair transfers were performed with modified independent to standby assist/supervision level. Car transfers were standby assistance/supervision level. The patient was felt to be stable to return to her home on 07/31/2017 with home health assistance. The adnexal cystic lesion will be followed up as an outpatient. Patient was advised of the presence of the right adnexal lesion and advised that Dr. Ahuja would follow this up. Please see letter to Dr. Ahuja in this regard. She will also follow-up with Dr. Durand regarding the pelvic fracture. She does not want any pain medication in terms of [place] and states that she will use Tylenol plus or minus Aleve as needed. Hospital course: Impression Left superior and inferior pubic rami fractures Acute blood loss anemia versus dilution (hemoglobin dropped from 12.1 down to 10.4) with hematoma noted on CT scan of pelvis Recent Urinary tract infection- Resolved and treated Orthostatic hypotension- Resolved Diverticulosis Dyslipidemia Glaucoma Meniere's disease Squamous cell carcinoma of lower leg Hx Clostridium difficile Plan Agree with admission to inpatient rehabilitation unit under the care of Dr. Painting Continue to work on pain control with [place] and Tylenol Follow routine hemoglobin every few days. Given there is a known hematoma in patient's pelvis. She does continue to be on Lovenox for DVT prophylaxis Encourage bowel motivation, given she is at high risk for constipation due to pelvis fracture. Continuing on scheduled MiraLAX daily and MOM PRN Coverage work with PT and OT for ongoing strengthening and improve function Hospital services will continue to follow patient medically manage existing comorbidities. At time of discharge medical care will return to patient's primary care provider , Dr. Ahuja 07/28 UTI with Providencia rettgeri - Monurol given on 07/24. Now with urinary frequency -- recheck UA. K slightly low at 3.5 -- KDur ordered. Recheck on 07/31. Hgb stable at 10.7 Otherwise medically stable. D/W Dr. Painting -- planning on dc on 07/31 home with home health. Time spent with patient: greater than 35 minutes Resuscitation Status: Full Code Discharge Plan - Med Rec/Dispo Referrals/Follow Up: Anant Durand MD [Physician] - (Dr. Rocio Durand follow up in 3 weeks in ortho clinic for repeat xrays, sooner if increased pain. ) Matt Ahuja MD [Primary Care Provider] - (NELL Michelle on 08/07/17 at 10:30 am for Hosp. follow-up. [address] [place] [address]) Prescriptions: New Calcium 600 + D [Caltrate + D] 1 tab PO BID tab Acetaminophen [Tylenol] 650 mg PO Q6H PRN tab PRN Reason: Pain Amoxicillin/Potassium Clav [Amox-Clav 250-125 mg Tablet] 250 mg PO Q8HR #8 tab Enoxaparin Sodium [Lovenox] 40 mg SQ DAILY #21 syringe Continue Latanoprost 1 drop BOTH EYES HS #0 [place]-3 Fatty Acids/Fish Oil [Fish Oil 1,000 mg Softgel] 2 cap PO DAILY Aspirin [Ecotrin] 81 mg PO DAILY Multivitamin [One Daily Multivitamin] 1 each PO DAILY Timolol 0.25% Eye Drops [Timoptic 0.25% Eye Drops] 1 drops EACH EYE DAILY - Dismissal Complete Discharge Instructions are:: Complete
--- NOTE | 2017-07-31 11:41 | Letter to Referring Physician ---
Dear Dr. Ahuja, This is a brief note to bring you up-to-date on the status of Kathie Espana and her stay on the acute inpatient rehabilitation unit at [facility]. As you are likely aware, this patient was admitted to the acute care hospital ( [facility]) on 07/23/17 for left superior and inferior pubic rami fractures. The patient was stabilized while on the acute level and admitted to inpatient rehabilitation unit at [facility] on July 25, 2017. While on inpatient rehabilitation, this patient was seen by occupational therapy and physical therapy and improved overall in their functional ability. We also monitored and managed the patient's other medical issues while on Acute Rehab. Please see a copy of the history and physical examination as well as discharge summary faxed separately for further details. We do recommend that the patient obtain a follow up urine culture in about 7-10 days after dismissal. She has appointment to follow-up with you as well as Dr. Durand saw her while on acute care for her pelvic fracture. Please note that the admission pelvic CT scan demonstrated a right adnexal cystic mass. Patient was advised of this and I told her that this would require further outpatient evaluation, possibly with sonogram. This has not been arranged and I would ask that you address this. Thank you for allowing us to be involved in this nice patient's care. Please contact me directly should you have any questions regarding their stay on the inpatient rehabilitation unit. Sincerely, Alex Painting M.D.
== END 2017-07-31 13:00 | disposition home health service (06) | DRG 560 ==
PROVIDERS: ADMIT Internal Medicine; ATTEND Internal Medicine